=== PATIENT | female | born 1940 | race Caucasian/White ===

== ENCOUNTER 2019-10-23 18:35 | Emergency (ER) | payer MEDICARE, BC, SELFPAY ==
[2019-10-23 18:39] VITALS: BMI 29.7
--- NOTE | 2019-10-23 18:44 | ED_ITS ---
Entered by Rory Menezes, acting as scribe for Neyda Mosley HPI - General Adult General: Chief complaint: General Medical Stated complaint: HTN Time Seen by Provider: 10/23/19 18:42 History of Present Illness: HPI narrative: 79 yo female presents with hypertension and lip numbness. Pt states that she felt strange earlier, then noticed her blood pressure was elevated. Pt denies trouble swallowing and shortness of breath. Pt was recently diagnosed with cellulitis and is taking docycline. Onset (ago): hour(s) Location: face Radiation: non-radiation Severity: moderate Quality: other Exacerbating factors: none Associated symptoms: Deny chest pain, confusion, diaphoresis, dyspnea, headache(s), malaise, nausea, rash, palpitations, syncope or vomiting Review of Systems General: Reports: other (negative unless marked) Const: Denies: fever, chills, body aches, fatigue, malaise or diaphoresis Eyes: Denies: change in vision or blurry vision ENMT: Denies: throat pain, painful swallowing, hoarseness, ear pain, ear discharge, Change in hearing or nasal discharge Card: Denies: chest pain, palpitations, irregular heart rhythm, syncope, pre- syncope, shortness of breath on exertion or shortness of breath when lying down Resp: Denies: shortness of breath, productive cough, non-productive cough, wheezing, coughing up blood or chest congestion GI: Denies: abdominal pain, nausea, vomiting, vomiting blood, coffee grounds in vomit, diarrhea, constipation, cramping, blood in stool or black tarry stool : Denies: flank pain, painful urination, urinary frequency, urinary urgency, decreased urine ouput, urinary incontinence or blood in urine Musc: Denies: neck pain, back pain, extremity pain, extremity swelling, joint pain, joint swelling, joint warmth or joint stiffness Skin/Breast: Denies: rash, skin tenderness or yellow skin Neuro: Denies: headache, numbness in extremities, weakness in extremities, changes in sensation, lack of coordination, difficulty walking, dizziness, vertigo or confusion Endo: Denies: excessive thirst, tired all the time, cold intolerance, excessive sweating, flushing or hot flashes Eduardo/Lymph: Denies: easy bruising, easy bleeding, petechiae or enlarged lymph nodes All/Imm: Denies: hives, throat swelling, tongue swelling, facial swelling or acute wheezing PFSH ED PFSH: Statuses (acute, chronic, etc) shown below reflect problem list status as previously entered and may not be historically accurate Medical History Atrial fibrillation (Acute) CVA (cerebrovascular accident) (Acute) Dementia (Acute) Hypertension (Acute) Surgical History H/O elbow surgery (Acute) H/O thyroidectomy (Acute) Social History Smoking and tobacco status: never smoked Physical Exam Const: COMMON NORMALS: no apparent distress, oriented x3, no limitations, healthy appearing and well nourished EXAM LIMITATIONS: no altered mental status GENERAL APPEARANCE: cooperative, well kempt and well developed ORIENTATION/CONSCIOUSNESS: Yes awake HENMT: COMMON NORMALS: normocephalic, head/scalp atraumatic, hearing grossly normal bilaterally, external ears normal, EAC's normal, external nose normal and moist oral mucous membranes HEAD & SCALP: normal to inspection, normocephalic and atraumatic FACE & SINUS: normal facial exam and face symmetric NOSE: external nose normal and nares normal EXTERNAL EAR: Yes external ears normal EXTERNAL AUDITORY CANAL: EAC's normal MOUTH: oral and palatal mucosa normal and tongue normal Eye: COMMON NORMALS: PERRL, EOMs intact bilaterally, conjunctivae normal and no scleral icterus GENERAL EYE: normal appearance of both eyes and normal light reflex CONJUNCTIVA: Yes conjunctivae normal SCLERA: sclerae normal CORNEA: Yes corneas normal PUPIL: Yes PERRL DIRECT OPHTHALMOSCOPY: Yes normal light reflex Neck/C-Spine: COMMON NORMALS: full ROM, no lymphadenopathy, supple, no meningeal signs and no JVD GENERAL: Yes normal visual inspection and Yes trachea midline CERVICAL SPINE: Yes cervical ROM normal Chest: COMMONS NORMALS: inspection of chest normal and palpation of chest normal Resp: COMMON NORMALS: normal respiratory effort, no retractions, no use of accessory muscles and clear to auscultation bilaterally EFFORT & INSPECTION: Yes able to speak in complete sentences AUSCULTATION: clear to auscultation bilaterally Cardio: COMMON NORMALS: no JVD, regular rate, regular rhythm, S1 normal heart sound, S2 normal heart sound, no gallops, no clicks, no murmurs and no rub JUGULAR VENOUS DISTENTION: no JVD RATE: regular rate RHYTHM: regular rhythm HEART SOUNDS: S1 normal and S2 normal GI: COMMON NORMALS: soft to palpation, non-tender, no hepatosplenomegaly and no masses INSPECTION: Yes normal to inspection PALPATION: Yes soft and Yes no hepatosplenomegaly : COMMON NORMALS: Yes no CVA tenderness BLADDER/KIDNEY EXAM: Yes no CVA tenderness Back/Pelvis: COMMON NORMALS: no CVA tenderness, thoracic and lumbar spine normal to inspection, no thoracic nor lumbar tenderness and thoraco-lumbar ROM normal Extremity: COMMON NORMALS: full ROM, normal capillary refill, no joint enlargement, no clubbing, cyanosis or edema and no calf tenderness; negative for normal to inspection (pt has cellultis on bilateral lower extremities. ) Neuro: COMMON NORMALS: oriented x3, CN's II-XII intact bilaterally, moves all extremities, no focal motor deficits and no sensory deficits noted MENINGEAL SIGNS: Yes no meningeal signs Psych: COMMON NORMALS: mental status grossly normal, thought process normal, cooperative, affect normal, speech normal and activity/motor behavior normal APPEARANCE: Yes well kempt SPEECH: Yes normal speech THOUGHT PROCESS: normal thought process Skin: COMMON NORMALS: negative for no rashes or lesions noted (cellulitis of bilateral lower extremities) GENERAL SKIN EXAM: rashes and/or lesions noted (cellulitis of bilateral lower extremities) Course Vital Signs: Vital signs: Vital Signs Pulse Rate 58 L 10/23/19 19:33 Respiratory Rate 78 H 10/23/19 22:13 Blood Pressure 151/90 10/23/19 22:13 Pulse Oximetry 96 10/23/19 22:13 MDM - General Adult [facility] Narrative: Medical decision making narrative: Jose A Lal is a very nice 79-year-old female who comes in complaining of paresthesias in her lower lip. The paresthesias are on both sides. She denies any weakness or numbness on one side of her face more than another. She denies any arm or leg weakness. The patient states her symptoms have been getting gradually better since the onset a few hours ago. Differential includes CVA, electrolyte normality, allergic reaction/angioedema among many others. We will direct our evaluation to rule out stroke primarily but look for other causes. 2217 -patient symptoms have completely resolved on their own. There is no evidence of DVT of her right lower extremity and she just recently changed to doxycycline from Keflex as her symptoms were not improving. I see no signs of overwhelming sepsis. I believe doxycycline has not had a chance to perform and so she is truly not failed outpatient therapy. I see no abnormality on CT of head or chest. Patient is feeling back to baseline would like to go home. She has an appointment to follow-up with Dr. Peck tomorrow so allow him to evaluate her at that time to determine if he wants to make any changes. Currently the patient has no questions or concerns and wants to proceed with this treatment plan but does agree to return should her symptoms change or worsen. Lab Data: Attestation: I reviewed the patient's lab results. Labs: Lab Results 10/23/19 10/23/19 10/23/19 Range/Units 19:12 19:20 19:28 WBC 5.8 (4.0-10.0) 10^3/ uL RBC 4.12 (4.1-5.3) 10^6/u L Hgb 11.4 L (11.5-15.3) g/dL Hct 36.5 L (37.0-47.0) % MCV 88.6 (81-99) fL MCH 27.7 L (28.0-34.0) pg MCHC 31.2 (30.0-36.0) g/dL RDW 14.3 (12.1-15.1) % Plt Count 253 (130-400) 10^3/c mm MPV 9.1 (7.4-10.4) fL Neut % (Auto) 58.8 % Lymph % (Auto) 29.2 % [place] % (Auto) 8.8 % Eos % (Auto) 1.9 % Baso % (Auto) 1.0 % Neut # (Auto) 3.4 (1.8-7.7) 10^3/u L Lymph # (Auto) 1.7 (0.8-4.8) 10^3/u L [place] # (Auto) 0.5 (0.2-0.9) 10^3/u L Eos # (Auto) 0.1 (0.0-0.8) 10^3/u L Baso # (Auto) 0.1 (0.0-0.1) 10^3/u L Nucleated RBC % (a uto) 0 % Nucleated RBCs # 0.0 /100WBC PT (10.5-13.3) SECO NDS INR (0.8-1.2) APTT (23.9-36.7) SECO NDS D-Dimer (0-0.59) ug/mIFE U Sodium (136-145) mmol/L Potassium (3.5-5.1) mmol/L Chloride (98-107) mmol/L Carbon Dioxide (22-29) mmol/L Anion Gap (5-19) BUN (8-23) mg/dL Creatinine (0.5-0.9) mg/dL Glucose (74-106) mg/dL Calcium (8.8-10.2) mg/Dl Magnesium (1.7-2.3) mg/dL Total Bilirubin (0.15-1.2) mg/dL AST (0-32) U/L ALT (0-33) U/L Alkaline Phosphata se (35-105) IU/L Troponin T Baselin e 12 H (0-10) ng/mL Troponin T 120 Min little [place] (0-10) ng/mL Delta Troponin T (0-10) ABS# Total Protein (6.6-8.7) g/dL Albumin (3.5-5.2) g/dL Globulin (1.3-4.6) g/dL Urine Color Colorless (Yellow) Urine Appearance Clear (CLEAR) Urine pH 7 (5-7) Ur Specific Gravit y 1.005 (1.005-1.030) Urine Protein Neg (Negative) Urine Glucose (UA) Norm (Normal) Urine Ketones Negative (Negative) Urine Occult Blood Neg (Negative) Urine Nitrate Negative (Negative) Urine Bilirubin Neg (NEGATIVE) Urine Urobilinogen Norm (Negative) mg/dL Ur Leukocyte Ashleigh ase Negative (Negative) Urine RBC None (0-2) /hpf Urine WBC Rare (0-5) /hpf Ur Squamous Epith Cells 0-4 H (0-5) Urine Bacteria Trace (NONE) 10/23/19 10/23/19 10/23/19 Range/Units 19:28 19:28 21:03 WBC (4.0-10.0) 10^3/ uL RBC (4.1-5.3) 10^6/u L Hgb (11.5-15.3) g/dL Hct (37.0-47.0) % MCV (81-99) fL MCH (28.0-34.0) pg MCHC (30.0-36.0) g/dL RDW (12.1-15.1) % Plt Count (130-400) 10^3/c mm MPV (7.4-10.4) fL Neut % (Auto) % Lymph % (Auto) % [place] % (Auto) % Eos % (Auto) % Baso % (Auto) % Neut # (Auto) (1.8-7.7) 10^3/u L Lymph # (Auto) (0.8-4.8) 10^3/u L [place] # (Auto) (0.2-0.9) 10^3/u L Eos # (Auto) (0.0-0.8) 10^3/u L Baso # (Auto) (0.0-0.1) 10^3/u L Nucleated RBC % (a uto) % Nucleated RBCs # /100WBC PT 23.60 H (10.5-13.3) SECO NDS INR 2.02 H (0.8-1.2) APTT 39.0 H (23.9-36.7) SECO NDS D-Dimer 0.95 H (0-0.59) ug/mIFE U Sodium 134 L (136-145) mmol/L Potassium 4.0 (3.5-5.1) mmol/L Chloride 96 L (98-107) mmol/L Carbon Dioxide 25 (22-29) mmol/L Anion Gap 17.0 (5-19) BUN 9 (8-23) mg/dL Creatinine 0.8 (0.5-0.9) mg/dL Glucose 106 (74-106) mg/dL Calcium 10.4 H (8.8-10.2) mg/Dl Magnesium 1.9 (1.7-2.3) mg/dL Total Bilirubin 0.4 (0.15-1.2) mg/dL AST 16 (0-32) U/L ALT 10 (0-33) U/L Alkaline Phosphata se 86 (35-105) IU/L Troponin T Baselin e (0-10) ng/mL Troponin T 120 Min [place] 14.04 H (0-10) ng/mL Delta Troponin T 2.04 (0-10) ABS# Total Protein 7.2 (6.6-8.7) g/dL Albumin 3.5 (3.5-5.2) g/dL Globulin 3.7 (1.3-4.6) g/dL Urine Color (Yellow) Urine Appearance (CLEAR) Urine pH (5-7) Ur Specific Gravit y (1.005-1.030) Urine Protein (Negative) Urine Glucose (UA) (Normal) Urine Ketones (Negative) Urine Occult Blood (Negative) Urine Nitrate (Negative) Urine Bilirubin (NEGATIVE) Urine Urobilinogen (Negative) mg/dL Ur Leukocyte Ashleigh ase (Negative) Urine RBC (0-2) /hpf Urine WBC (0-5) /hpf Ur Squamous Epith Cells (0-5) Urine Bacteria (NONE) Imaging Data^: CT Head: Radiologist's impression: [place] [address] CT Scan Report Signed Patient: Hali Ga Unit #: [id number] : 1940 Age/Sex: 79 / F ADM Date: 10/23/19 Loc: ER Room/Bed: Attending Dr: Ordering Provider/Ordering MD: Neyda Mosley DO Date of Service: 10/23/19 Procedure(s): CT head wo con* [id number] Accession Number(s): [id number] Report Number: [id number] PROCEDURE INFORMATION: Exam: CT Head Without Contrast Exam date and time: 10/23/2019 6:54 PM Age: 79 years old Clinical indication: Altered mental status/memory loss; Additional info: Douglass/ams TECHNIQUE: Imaging protocol: Computed tomography of the head without contrast. Total DLP: 803.72 mGy-cm Radiation optimization: All CT scans at this facility use at least one of these dose optimization techniques: automated exposure control; mA and/or kV adjustment per patient size (includes targeted exams where dose is matched to clinical indication); or iterative reconstruction. COMPARISON: CT head wo con* [id number] 09/15/2019 12:29 PM FINDINGS: There is mild generalized atrophy. There are mild areas of decreased attenuation in the periventricular white matter which is nonspecific but likely relates to small vessel ischemic change. There is no evidence for acute infarct. There is no evidence for mass. There is no hemorrhage. There are no extra-axial fluid collections. There is no midline shift. The skull is intact. The visualized paranasal sinuses are well aerated. There is atherosclerotic change of the cavernous carotid arteries. CT/CT head wo con* [id number] IMPRESSION: No evidence for acute infarct, mass or hemorrhage. Radiation Dose CTDIVOL = (mGy): DLP = 803.72 (mGy-cm) Dictated By: Damaso Cantrell MD Signed By: Damaso Cantrell MD Signed Date/Time: 10/23/191916 DD/ 16 CT Chest: Radiologist's impression: [place] [address] CT Scan Report Signed Patient: Hali Ga Unit #: [id number] : 1940 Age/Sex: 79 / F ADM Date: 10/23/19 Loc: ER Room/Bed: Attending Dr: Ordering Provider/Ordering MD: Neyda Mosley DO Date of Service: 10/23/19 Procedure(s): CT angio chest PE protcl 51081 Accession Number(s): [id number] Report Number: [id number] PROCEDURE INFORMATION: Exam: CT Angiography Chest With Contrast Exam date and time: 10/23/2019 8:45 PM Age: 79 years old Clinical indication: Abnormal findings; Abnormal diagnostic tests; Elevated d-dimer; Additional info: Near syncope, positive d-dimer TECHNIQUE: Imaging protocol: Computed tomographic angiography of the chest with intravenous contrast. 3D rendering: MIP and/or 3D reconstructed images were created by the technologist. Total DLP: 572.4 mGy-cm Radiation optimization: All CT scans at this facility use at least one of these dose optimization techniques: automated exposure control; mA and/or kV adjustment per patient size (includes targeted exams where dose is matched to clinical indication); or iterative reconstruction. Contrast material: OMNI 350; Contrast volume: 95 ml; Contrast route: IV; COMPARISON: CR XR chest 1V portable [id number] 10/23/2019 6:50 PM FINDINGS: There are degenerative changes of the spine. The lungs are clear of infiltrate. There is no pleural effusion. There is no pneumothorax. There are no suspicious pulmonary nodules. The central airways are normal in caliber. There is a 5 mm cyst within the left lobe of the thyroid gland. This does not require any further follow-up. Small axillary lymph nodes are present. Small mediastinal lymph nodes are present. Small hilar lymph nodes are present. Interrogation of the pulmonary arteries in multiple planes shows no evidence for pulmonary embolism. The aorta is normal in caliber with no evidence for aneurysm or dissection. The heart is normal in size. There is no evidence for right heart failure. There is a small hiatal hernia. The upper abdominal structures are unremarkable. There is a sebaceous cyst noted anterior to the sternum. CT/CT angio chest PE protcl [id number] IMPRESSION: 1. No evidence for pulmonary embolism. 2. No focal infiltrates. 3. Incidental findings as described. Radiation Dose CTDIVOL = (mGy): DLP = 572.4 (mGy-cm) Dictated By: Damaso Cantrell MD Signed By: Damaso Cantrell MD Signed Date/Time: 10/23/192203 DD/ 02 EKG Data^: EKG 1: Attestation: I personally reviewed and interpreted this EKG as follows: EKG interpretation date: 10/23/19 EKG interpretation time: 19:22 Interpretation: Normal sinus rhythm at 56 beats a minute, possible Q waves anteriorly, LVH, interventricular conduction delay, nonspecific ST-T wave changes. Computer generated interpretation: Head CT 10/23/19 18:46 IMPRESSION: No evidence for acute infarct, mass or hemorrhage. Radiation Dose CTDIVOL = (mGy): DLP = 803.72 (mGy-cm) Chest CTA 10/23/19 20:41 IMPRESSION: 1. No evidence for pulmonary embolism. 2. No focal infiltrates. 3. Incidental findings as described. Radiation Dose CTDIVOL = (mGy): DLP = 572.4 (mGy-cm) EKG 2: Attestation: I personally reviewed and interpreted this EKG as follows: EKG interpretation date: 10/23/19 EKG interpretation time: 20:33 Interpretation: Normal sinus rhythm at 59 beats a minute, LVH, normal MA interval, interventricular conduction delay, no acute ST-T wave changes. Unchanged from previous Computer generated interpretation: Head CT 10/23/19 18:46 IMPRESSION: No evidence for acute infarct, mass or hemorrhage. Radiation Dose CTDIVOL = (mGy): DLP = 803.72 (mGy-cm) Chest CTA 10/23/19 20:41 IMPRESSION: 1. No evidence for pulmonary embolism. 2. No focal infiltrates. 3. Incidental findings as described. Radiation Dose CTDIVOL = (mGy): DLP = 572.4 (mGy-cm) Discharge Plan Discharge Patient Disposition: Home, Self-Care Clinical Impression: Facial paresthesia, Cellulitis and abscess of right leg Condition: Stable Discharge Orders: Discharge Order (Routine); Ordered 10/23/19 Ordered By: Neyda Mosley Referrals: Neo Mcelroy [Family Provider] - 1-3 days Discharge Diet: Advance as tolerated Discharge Activity: Increase activity as tolerated Patient Instructions: Cellulitis (ED) Activity Restrictions/Additional Instructions: My discharge be certain to follow-up with Mr. Peck tomorrow for recheck. Continue your doxycycline as prescribed. Return to the ER sooner for increased pain, fever, vomiting, worsening of your cellulitis, or for any other cause for concern. Coding Level of Care Code ED Bundle Sorter for Chg Fwd Exam Problem Focused The documentation recorded by the Clif roach Kialy, accurately reflects the service I personally performed and the decisions made by Melany uriarte Eli N Oct 23, 2019 18:35
--- NOTE | 2019-10-23 18:46 | USCV_ITS ---
Hali Ga Age: 79 Gender: F : 1940 Exam Date: 10/23/2019 19:29 Ordering Phys: Neyda Mosley DO Technologist: Emily Schaffer Exam Location: [facility] [place]_ Indication: SWELLING HISTORY: Lower extremity swelling. PROCEDURES: Venous duplex imaging was performed in only the right lower extremity. The following venous structures were evaluated: common femoral vein, profunda vein, proximal portion of the greater saphenous vein, superficial femoral vein, and the popliteal vein. In addition, the posterior tibial and peroneal trunk were evaluated. Serial compression, augmentation maneuvers, and spectral Doppler flow evaluation were performed. FINDINGS: Normal 2-D Doppler and augmentation and compressibility throughout the lower extremity venous structures. Additional imaging through the proximal calf veins also reveals no thrombus. Limited evaluation of the greater saphenous vein is patent with no thrombus. CONCLUSIONS No DVT right lower extremity. Dr. Alisa Villalobos DO (Electronically Signed) Final Date: 24 October 2019 09:43 S
--- NOTE | 2019-10-23 18:46 | XR_ITS ---
WS: [id number] CHEST XRAY TECHNIQUE: Portable chest. CLINICAL INFORMATION: cough COMPARISON: September 15, 2019 FINDINGS: Heart: Normal cardiac silhouette. Lungs: Lungs are clear. No consolidation or pleural effusion. Bones: Normal visualized bony structures. XR/XR chest 1V portable [id number] IMPRESSION: Normal chest
--- NOTE | 2019-10-23 18:47 | ECG_ITS ---
Measurements Intervals [place] Rate: 56 P: 32 HI: 184 QRS: -8 QRSD: 126 T: 58 QT: 430 QTc: 416 SINUS BRADYCARDIA POSSIBLE RIGHT VENTRICULAR CONDUCTION DELAY [RSR (QR) IN V1/V2] POSSIBLE LEFT VENTRICULAR HYPERTROPHY [VOLTAGE CRITERIA PLUS LAE OR QRS WIDENING] POSSIBLE SEPTAL MYOCARDIAL INFARCTION , PROBABLY OLD [30 ms Q WAVE IN V1/V2] Compared to ECG 09/15/2019 11:36:34 Left-axis deviation no longer present Myocardial infarct finding still present Electronically Signed On 10-24-2019 20:21:59 BUSINESS SERVICES SALES AGENT by Jenna Wu M.D. [id number]
[2019-10-23 19:33] VITALS: BP 162/71; PULSE 58; RESP 19; O2SAT 97
[2019-10-23 19:36] LABS: Basophils # 0.1 10^3/uL (0.0-0.1); Eosinophils # 0.1 10^3/uL (0.0-0.8); Eosinophils % 1.9 %; Hematocrit 36.5 % (37.0-47.0); Hemoglobin 11.4 g/dL (11.5-15.3); Lymphocytes # 1.7 10^3/uL (0.8-4.8); Lymphocytes % 29.2 %; Mean Corpuscular HGB Conc 31.2 g/dL (30.0-36.0); Mean Corpuscular Hemoglobin 27.7 pg (28.0-34.0); Mean Corpuscular Volume 88.6 fL (81-99); Mean Platelet Volume 9.1 fL (7.4-10.4); Monocytes # 0.5 10^3/uL (0.2-0.9); Monocytes % 8.8 %; Neutrophils # 3.4 10^3/uL (1.8-7.7); Neutrophils % 58.8 %; Nucleated Red Blood Cells % 0 %; Platelet Count 253 10^3/cmm (130-400); Red Blood Count 4.12 10^6/uL (4.1-5.3); Red Cell Distribution Width 14.3 % (12.1-15.1); White Blood Count 5.8 10^3/uL (4.0-10.0)
[2019-10-23 19:47] LABS: INR 2.02 (0.8-1.2)
[2019-10-23 19:50] LABS: D Dimer 0.95 ug/mIFEU (0-0.59)
[2019-10-23 19:55] LABS: Alanine Aminotransferase 10 U/L (0-33); Albumin Level 3.5 g/dL (3.5-5.2); Alkaline Phosphatase 86 IU/L (35-105); Aspartate Amino Transferase 16 U/L (0-32); Blood Urea Nitrogen 9 mg/dL (8-23); Calcium 10.4 mg/Dl (8.8-10.2); Carbon Dioxide 25 mmol/L (22-29); Chloride 96 mmol/L (98-107); Globulin 3.7 g/dL (1.3-4.6); Glucose 106 mg/dL (74-106); Magnesium 1.9 mg/dL (1.7-2.3); Sodium 134 mmol/L (136-145); Total Bilirubin 0.4 mg/dL (0.15-1.2); Total Protein 7.2 g/dL (6.6-8.7)
[2019-10-23 19:56] LABS: Troponin(5th) Baseline 12 ng/mL (0-10)
[2019-10-23 19:59] LABS: Urine Appearance Clear (CLEAR); Urine Color Colorless (Yellow); pH Urine 7 (5-7)
[2019-10-23 20:00] LABS: Add Urine Culture? No; Bacteria Urine TRACE; Bilirubin Urine Neg (NEGATIVE); Blood Urine Neg (Negative); Glucose Urine UA Norm (Normal); Ketones Urine Negative (Negative); Leukocyte Esterase Urine Negative (Negative); Nitrate Urine Negative (Negative); Protein Urine Neg (Negative); Specific Gravity, Urine 1.005 (1.005-1.030); Squamous Epithelial Cell Urine 0-4 (0-5); Urobilinogen Urine Norm (Negative); WBC Urine RARE /hpf (0-5)
--- NOTE | 2019-10-23 20:41 | CTR_ITS ---
PROCEDURE INFORMATION: Exam: CT Angiography Chest With Contrast Exam date and time: 10/23/2019 8:45 PM Age: 79 years old Clinical indication: Abnormal findings; Abnormal diagnostic tests; Elevated d-dimer; Additional info: Near syncope, positive d-dimer TECHNIQUE: Imaging protocol: Computed tomographic angiography of the chest with intravenous contrast. 3D rendering: MIP and/or 3D reconstructed images were created by the technologist. Total DLP: 572.4 mGy-cm Radiation optimization: All CT scans at this facility use at least one of these dose optimization techniques: automated exposure control; mA and/or kV adjustment per patient size (includes targeted exams where dose is matched to clinical indication); or iterative reconstruction. Contrast material: OMNI 350; Contrast volume: 95 ml; Contrast route: IV; COMPARISON: CR XR chest 1V portable [id number] 10/23/2019 6:50 PM FINDINGS: There are degenerative changes of the spine. The lungs are clear of infiltrate. There is no pleural effusion. There is no pneumothorax. There are no suspicious pulmonary nodules. The central airways are normal in caliber. There is a 5 mm cyst within the left lobe of the thyroid gland. This does not require any further follow-up. Small axillary lymph nodes are present. Small mediastinal lymph nodes are present. Small hilar lymph nodes are present. Interrogation of the pulmonary arteries in multiple planes shows no evidence for pulmonary embolism. The aorta is normal in caliber with no evidence for aneurysm or dissection. The heart is normal in size. There is no evidence for right heart failure. There is a small hiatal hernia. The upper abdominal structures are unremarkable. There is a sebaceous cyst noted anterior to the sternum. CT/CT angio chest PE protcl [id number] IMPRESSION: 1. No evidence for pulmonary embolism. 2. No focal infiltrates. 3. Incidental findings as described. Radiation Dose CTDIVOL = (mGy): DLP = 572.4 (mGy-cm)
--- NOTE | 2019-10-23 20:47 | ECG_ITS ---
Measurements Intervals [place] Rate: 59 P: 31 DC: 190 QRS: -5 QRSD: 127 T: 59 QT: 434 QTc: 432 SINUS BRADYCARDIA POSSIBLE LEFT VENTRICULAR HYPERTROPHY [VOLTAGE CRITERIA PLUS LAE OR QRS WIDENING] POSSIBLE SEPTAL MYOCARDIAL INFARCTION , PROBABLY OLD [30 ms Q WAVE IN V1/V2] Compared to ECG 09/15/2019 11:36:34 Left-axis deviation no longer present Myocardial infarct finding still present Electronically Signed On 10-24-2019 20:32:13 [employer]ANK STAVE ASSEMBLER by Jenna Wu M.D. [email or web address]
[2019-10-23 21:21] LABS: Troponin 5 2HR 14.04 ng/mL (0-10); Troponin 5 2HR Delta 2.04 ABS# (0-10)
[2019-10-23] MEDS: iohexol 350 mg/mL 100 mL Btl 95 ML IV (21:41)
[2019-10-23 22:13] VITALS: BP 151/90; RESP 78; O2SAT 96
[2019-10-23 22:34] VITALS: BP 151/74; PULSE 67; RESP 17; O2SAT 96
== END 2019-10-23 22:34 | disposition home or self-care (01) ==
PROVIDERS: Emergency Provider Emergency Medicine; Family Provider Physician Assistant Medical
DX: R20.2 Paresthesia of skin (principal); L03.115 Cellulitis of right lower limb; I48.91 Unspecified atrial fibrillation; Z86.73 Personal history of transient ischemic attack (TIA), and cerebral infarction without residual deficits; F03.90 Unspecified dementia, unspecified severity, without behavioral disturbance, psychotic disturbance, mood disturbance, and anxiety; I10 Essential (primary) hypertension
CPT/HCPCS: 36415; 70450; 71045; 71275; 80053; 81001; 83735; 84484; 85025; 85378; 85610; 85730; 93005; 93971; 99282; 99284; Q9967

== ENCOUNTER → 2019-11-28 16:08 | Outpatient (BNVA) | payer MEDICARE, BC, SELFPAY | PROVIDERS: Family Provider Physician Assistant Medical; Visit Provider Registered Nurse | DX: E11.9 Type 2 diabetes mellitus without complications (principal) | CPT/HCPCS: 36416; 82962 ==

== ENCOUNTER 2019-12-07 15:48 | Outpatient (CLI) | payer MEDICARE, BC, SELFPAY ==
--- NOTE | 2019-12-07 16:02 | MR_ITS ---
WS: [id number] MRI BRAIN WITHOUT CONTRAST HISTORY: Alzheimer's, left-sided weakness. COMPARISON: CT head 10/23/2019. TECHNIQUE: Diffusion imaging, multiplanar T1, T2 and FLAIR imaging obtained. No evidence for an acute infarct on the diffusion-weighted images. There are multiple abnormalities n oted on the susceptibility sequence from prior hemorrhages and microhemorrhages. There are numerous s ubcortical and bilateral hemosiderin depositions. The largest is in the posterior LEFT frontal lobe m easuring maximum diameter of 9 mm. Majority of these are subcortical distribution but a few are sligh tly deeper. There is a prior hemorrhage in the LEFT splenium. Mild bilateral cerebral atrophy. There are a few scattered areas of increased T2 and FLAIR signal hyp erintensities from chronic microvascular ischemic disease. Ventricles and extra-axial spaces are mildly prominent. No inferior displacement of cerebellar tonsils. The sella turcica and pituitary gland are unremarkabl e. CSF like collection in the retrocerebellar region is stable and probably represents an arachnoid cyst . Dural venous sinuses and algaaciq of Braun demonstrate no abnormality on this unenhanced studies. Paranasal sinuses: Clear. Mastoid air cells: Normal. Calvarium and scalp: Intact. MR/MR head wo con* [id number] IMPRESSION: 1. No acute infarct or mass effect. 2. Multiple small foci of hemosiderin deposition predominantly involving the s ubcortical white matter noted bilaterally. Differential includes amyloid angiop athy, prior hypertensive microhemorrhages and multiple small cavernous malforma tions.
== END 2019-12-07 15:49 | disposition home or self-care (01) ==
LOC: RADWPI 15:53
PROVIDERS: Family Provider Physician Assistant Medical; PCP Physician Assistant Medical; Visit Provider Registered Nurse
DX: G30.1 Alzheimer's disease with late onset (principal); F02.80 Dementia in other diseases classified elsewhere, unspecified severity, without behavioral disturbance, psychotic disturbance, mood disturbance, and anxiety; R53.1 Weakness
CPT/HCPCS: 70551

== ENCOUNTER → 2020-08-31 17:52 | Outpatient (BNVA) | payer MEDICARE, BC, SELFPAY | PROVIDERS: Family Provider Physician Assistant Medical; PCP Physician Assistant Medical; Visit Provider Nurse Practitioner Family | DX: N39.0 Urinary tract infection, site not specified (principal); R39.11 Hesitancy of micturition | CPT/HCPCS: 81000 ==

== ENCOUNTER → 2020-09-02 11:11 | Outpatient (BNVA) | payer MEDICARE, BC, SELFPAY | PROVIDERS: Family Provider Physician Assistant Medical; PCP Physician Assistant Medical; Visit Provider Registered Nurse | DX: R39.11 Hesitancy of micturition (principal); R35.0 Frequency of micturition; G30.1 Alzheimer's disease with late onset; F02.81 Dementia in other diseases classified elsewhere, unspecified severity, with behavioral disturbance | CPT/HCPCS: 81000; 87086 ==

== ENCOUNTER → 2020-10-24 08:57 | Outpatient (BNVA) | payer MEDICARE, BC, SELFPAY | PROVIDERS: Family Provider Physician Assistant Medical; PCP Physician Assistant Medical; Visit Provider Registered Nurse | DX: R68.89 Other general symptoms and signs (principal); K52.9 Noninfective gastroenteritis and colitis, unspecified | CPT/HCPCS: 87400 ==

== ENCOUNTER 2020-12-10 08:43 | Outpatient (CLI) | payer MEDICARE, BC, SELFPAY ==
--- NOTE | 2020-12-10 08:45 | US_ITS ---
WS: [id number] INDICATION: Enlarged lymph nodes TECHNIQUE: Ultrasound soft tissue neck FINDINGS: Ultrasound soft tissue neck area of concern. Ultrasound in the area of the submandibular gl ands. Bilateral hypoechoic enlarged submandibular lymph nodes measuring up to 1.5 cm greater on the r ight. These have an abnormal appearance with replacement of the normal fatty hilum. Normal submandibu lar glands. US/US soft tissue head neck [id number] IMPRESSION: Enlarged hypoechoic right greater than left submandibular lymph nod es with replacement of the normal fatty hilum. Recommend further evaluation wit h contrast-enhanced neck CT. Largest right submandibular lymph node measures 1. 4 x 1.1 cm.
== END 2020-12-10 08:44 | disposition home or self-care (01) ==
LOC: RAD 08:49
PROVIDERS: PCP Physician Assistant Medical; Visit Provider Registered Nurse
DX: R59.0 Localized enlarged lymph nodes (principal)
CPT/HCPCS: 76536

== ENCOUNTER 2020-12-17 15:13 | Outpatient (CLI) | payer MEDICARE, BC, SELFPAY ==
--- NOTE | 2020-12-17 15:30 | CT_ITS ---
WS: [id number] CT scan of the neck. Additional two-dimensional coronal and sagittal reconstruction was performed. Clinical Data: R59.0 - Localized enlarged lymph nodes Comparison: Neck ultrasound, 12/17/2020 DLP: 2582.[address] scans at [facility] use at least one of these dose optimization techniques: automat ed exposure control; mA and/or kV adjustment per patient size (includes targeted exams where dose is matched to clinical indication); or iterative reconstruction. Findings: The left neck lymph node adjacent to the submandibular gland is identified and measures 1.5cm. No oth er significant adenopathy is seen. The remainder of the lymph nodes in the neck appear to be normal. The salivary glands are unremarkable. There is no prevertebral soft tissue swelling. The larynx is sy mmetric. The thyroid gland shows normal enhancement with probable small cysts in the left lobe.. The floor of the mouth and parapharyngeal spaces are normal. The oral cavity is unremarkable. The carotid arteries bifurcate normally. The cervical spine shows mild osteoarthritis. The lung apice s show no abnormalities. The portions of the intracranial circulation which are seen demonstrate no a bnormalities. The ventricular system shows modest dilatation without shift. No erosion of the skull o r skull base is seen. CT/CT neck w con* [id number] Impression: 1. Isolated lymph node enlargement adjacent to left submandibular gland. 2. No diffuse lymphadenopathy is seen.
[2020-12-17 15:55] LABS: Blood Urea Nitrogen 11 mg/dL (8-23)
[2020-12-17] MEDS: iohexol 300 mg/mL 100 mL Btl IV (16:11)
== END 2020-12-17 15:14 | disposition home or self-care (01) ==
LOC: RADWPI 15:14
PROVIDERS: PCP Registered Nurse; Visit Provider Registered Nurse
DX: R59.0 Localized enlarged lymph nodes (principal)
CPT/HCPCS: 70491; 82565; 84520; Q9967

== ENCOUNTER 2021-01-31 22:26 | Emergency (ER) | payer MEDICARE, BC, SELFPAY ==
[2021-01-31 22:33] VITALS: BP 153/77; PULSE 69; RESP 18; TEMP 37.1; O2SAT 96; BMI 30.5
--- NOTE | 2021-01-31 23:38 | CTR_ITS ---
PROCEDURE INFORMATION: Exam: CT Lumbar Spine Without Contrast Exam date and time: 01/31/2021 11:44 PM Age: 80 years old Clinical indication: Injury or trauma; Fall; Blunt trauma (contusions or hematomas); Injury date: ; Injury details: PT fell in the shower today, denies loc, pain in buttox TECHNIQUE: Imaging protocol: Computed tomography images of the lumbar spine without contrast. Radiation optimization: All CT scans at this facility use at least one of these dose optimization techniques: automated exposure control; mA and/or kV adjustment per patient size (includes targeted exams where dose is matched to clinical indication); or iterative reconstruction. COMPARISON: No relevant prior studies available. RADIATION DOSE METRICS: Total DLP (mGy-cm): 2406.92 FINDINGS: Vertebrae: No acute fracture. Normal alignment. Discs/Spinal canal/Neural foramina: Sclerosis, joint space narrowing and bone spurring is seen within the facets of the lumbar spine most notably from L3-S1 compatible with degenerative joint disease. Mild diffuse loss of disc height is seen within the lumbar spine compatible with degenerative disc disease.. Soft tissues: Unremarkable. CT/CT lumbar spine wo con* [id number] IMPRESSION: There are acute osseous findings. Radiation Dose CTDIVOL = (mGy): DLP = 2406.92 (mGy-cm)
--- NOTE | 2021-01-31 23:38 | CTR_ITS ---
PROCEDURE INFORMATION: Exam: CT Head Without Contrast Exam date and time: 01/31/2021 11:44 PM Age: 80 years old Clinical indication: Injury or trauma; Fall; Blunt trauma (contusions or hematomas); Without loss of consciousness; Injury date: 01/31/2021; Injury details: PT fell in the shower today, denies loc, pain in buttox TECHNIQUE: Imaging protocol: Computed tomography of the head without contrast. Radiation optimization: All CT scans at this facility use at least one of these dose optimization techniques: automated exposure control; mA and/or kV adjustment per patient size (includes targeted exams where dose is matched to clinical indication); or iterative reconstruction. COMPARISON: CT head wo con* [id number] 10/23/2019 7:15 PM RADIATION DOSE METRICS: Total DLP (mGy-cm): 872.76 FINDINGS: Brain: There is mild diffuse cerebral atrophy. Patchy areas of hypoattenuation seen in the deep white matter of the cerebral hemispheres bilaterally compatible mild deep white matter microvascular disease. There is some focal hypoattenuation and mild atrophy seen within the left frontal lobe superiorly compatible with a chronic infarction. This appears stable compared with 10/23/2019. Cerebral ventricles: No ventriculomegaly. Bones/joints: Unremarkable. No acute fracture. Paranasal sinuses: Visualized sinuses are unremarkable. No fluid levels. Mastoid air cells: Visualized mastoid air cells are well aerated. Soft tissues: Unremarkable. CT/CT head wo con* [id number] IMPRESSION: There are no acute intracranial findings. Stable head CT compared with 10/23/2019. Radiation Dose CTDIVOL = (mGy): DLP = 872.76 (mGy-cm)
--- NOTE | 2021-01-31 23:38 | CTR_ITS ---
PROCEDURE INFORMATION: Exam: CT Pelvis Without Contrast; Skeletal Exam date and time: 01/31/2021 11:44 PM Age: 80 years old Clinical indication: Injury or trauma; Fall; Blunt trauma (contusions or hematomas); Does not apply; Pelvic region; Injury date: 01/31/2021; Injury details: PT fell in the shower today, denies loc, pain in buttox TECHNIQUE: Imaging protocol: Computed tomography images of the pelvis without contrast. Exam focused on the skeletal structures. Radiation optimization: All CT scans at this facility use at least one of these dose optimization techniques: automated exposure control; mA and/or kV adjustment per patient size (includes targeted exams where dose is matched to clinical indication); or iterative reconstruction. COMPARISON: CR Hip 2-3v RIGHT wwo Pelv* [id number] 01/28/2019 1:59 AM RADIATION DOSE METRICS: Total DLP (mGy-cm): 805.52 FINDINGS: Bones/joints: Unremarkable. No acute fracture. No dislocation. Soft tissues: Unremarkable. CT/CT pelvis wo con [id number] IMPRESSION: No acute findings. Radiation Dose CTDIVOL = (mGy): DLP = 805.52 (mGy-cm)
--- NOTE | 2021-01-31 23:39 | ECG_ITS ---
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: : 1940 Requested By: Ramirez Garay Order Number: [id number] Cher MD: ONDINA BRINK Measurements Intervals [place] Rate: 67 P: 29 [place]: 161 QRS: -27 QRSD: 129 T: 60 QT: 389 QTc: 413 Interpretive Statements SINUS RHYTHM POSSIBLE LEFT VENTRICULAR HYPERTROPHY [VOLTAGE CRITERIA PLUS LAE OR QRS WIDENING] POSSIBLE SEPTAL MYOCARDIAL INFARCTION , OF INDETERMINATE AGE [30 ms Q WAVE IN V1/V2] Compared to ECG 10/23/2019 20:32:21 Sinus bradycardia no longer present Myocardial infarct finding still present Electronically Signed On 02-01-2021 22:24:27 CDT by ONDINA BRINK [email or web address]/store/NU/[id number] f
[2021-01-31 23:59] LABS: Add Urine Microscopic? NO; Charge for UA Resulting for Rev
--- NOTE | 2021-02-01 00:20 | ED_ITS ---
HPI - Fall General: Chief Complaint: Fall Stated Complaint: FALL/LOWER BACK PAIN Time Seen by Provider: 01/31/21 22:55 History of Present Illness: HPI Narrative: 80-year-old female with a history of CVA. She fell around 830 this evening in the bathroom after getting out of the shower she essentially landed on her buttocks. A family member found her on her back. She complains of pain to the tailbone and lower back mainly. No headache. Family was concerned because it seemed like she was possibly dragging her right lower extremity a bit more since the fall that is her affected lower extremity from the previous stroke. She is anticoagulated. complaint: fall Onset (ago): hour(s) Fall from: standing Fall witnessed: no Place fall occurred: home Loss of consciousness: None Prolonged down time: no Symptoms prior to fall: none Context: tripped/slipped (Likely, although they are unsure) Location of injury: back and buttocks Severity: moderate Quality: aching Associated symptoms-after fall: Reports difficulty walking; Denies abdominal pain, chest pain, confusion, neck pain or short of breath Review of Systems Const: Denies: fever(s) or chills Card: Denies: chest pain Resp: Denies: dyspnea or productive cough GI: Denies: abdominal pain : Denies: flank pain or difficulty voiding Musc: Denies: neck pain Neuro: Reports: difficulty walking; Denies: confusion PFSH ED PFSH: Medical History Atrial fibrillation CVA (cerebrovascular accident) Dementia Hypertension Surgical History H/O elbow surgery H/O thyroidectomy Social History Smoking and tobacco status: never smoked Physical Exam Const: COMMON NORMALS: patient oriented x3 GENERAL APPEARANCE: well developed ORIENTATION/CONSCIOUSNESS: Yes oriented to person, Yes oriented to place and Yes oriented to time HENMT: COMMON NORMALS: normocephalic and external ears normal HEAD & SCALP: normocephalic FACE & SINUS: normal facial exam EXTERNAL EAR: Yes external ears normal Eye: COMMON NORMALS: Equal, round and reactive pupils present, EOMs intact bilaterally and conjunctivae normal EYELID: eyelids normal CONJUNCTIVA: Yes conjunctivae normal PUPIL: Yes Equal, round and reactive pupils present Neck/C-Spine: COMMON NORMALS: full ROM GENERAL: No tracheal deviation CERVICAL SPINE: No Cervical spine tenderness Chest: COMMONS NORMALS: normal inspection of the chest CHEST: No tenderness Resp: COMMON NORMALS: clear to auscultation bilaterally EFFORT & INSPECTION: No tachypneic, No respiratory distress, No retractions, No uses accessory muscles and No tracheal deviation AUSCULTATION: clear to auscultation bilaterally, no rhonchi, no wheezes and lung sounds not diminished Cardio: COMMON NORMALS: regular rate and regular rhythm RATE: regular rate RHYTHM: regular rhythm HEART SOUNDS: no murmurs PERIPHERAL PULSES: radial pulses present GI: COMMON NORMALS: Soft to palpation INSPECTION: No abdominal distension AUSCULTATION: No Hyperactive bowel sounds present and No Hypoactive bowel sounds present PALPATION: Yes Soft to palpation, No Guarding due to palpation present (GI) and No Rigid due to palpation Back/Pelvis: OTHER: Exam the lumbar spine and pelvis reveals no pain with pelvic compression. There is mild tenderness at L5. There is some tenderness over the sacrum. No deformity. Straight leg raise test is negative bilaterally Neuro: COMMON NORMALS: patient oriented x3, CN's II-XII intact bilaterally and no focal motor deficits SENSORIUM/ORIENTATION: Yes oriented to person, Yes oriented to place and Yes oriented to time COORDINATION/BALANCE: szqjep-[id number] test normal SPEECH: speech normal SENSORY EXAM: Yes extr emities (Intact) MOTOR EXAM: Pronator motor function not present COORDINATION: [id number]-dz-[id number] test normal Psych: COMMON NORMALS: mental status grossly normal Skin: COMMON NORMALS: no rashes or lesions noted GENERAL SKIN EXAM: no rashes or lesions noted Course Vital Signs: Vital signs: Vital Signs Temperature 98.7 F 01/31/21 22:33 Pulse Rate 62 02/01/21 01:24 Respiratory Rate 19 H 02/01/21 01:24 Blood Pressure 147/76 02/01/21 01:24 Pulse Oximetry 97 02/01/21 01:24 MDM - Fall MDM Narrative: Medical decision making narrative: NIH stroke scale is [address] of the bony pelvis is negative as well as the lumbar spine CT. labs are benign. Clinically she has no signs of stroke. She will be allowed home. Pain control for sacral contusion Lab Data: Labs: Lab Results 01/31/21 02/01/21 02/01/21 Range/Units 23:45 00:38 00:38 WBC 11.4 H (4.0-10.0) 10^3/ uL RBC 4.39 (4.1-5.3) 10^6/u L Hgb 12.8 (11.5-15.3) g/dL Hct 39.0 (37.0-47.0) % MCV 88.8 (81-99) fL MCH 29.2 (28.0-34.0) pg MCHC 32.8 (30.0-36.0) g/dL RDW 13.3 (12.1-15.1) % Plt Count 221 (130-400) 10^3/c mm MPV 9.4 (7.4-10.4) fL Neut % (Auto) 78.3 % Lymph % (Auto) 13.1 % Catron % (Auto) 6.8 % Eos % (Auto) 0.9 % Baso % (Auto) 0.4 % Neut # (Auto) 8.93 H (1.8-7.7) 10^3/u L Lymph # (Auto) 1.5 (0.8-4.8) 10^3/u L Catron # (Auto) 0.8 (0.2-0.9) 10^3/u L Eos # (Auto) 0.1 (0.0-0.8) 10^3/u L Baso # (Auto) 0.1 (0.0-0.1) 10^3/u L Nucleated RBC % (a uto) 0 % Nucleated RBCs # 0.0 /100WBC PT 21.10 H (12.1-14.9) SECO NDS INR 1.78 H (0.8-1.2) Sodium (136-145) mmol/L Potassium (3.5-5.1) mmol/L Chloride (98-107) mmol/L Carbon Dioxide (22-29) mmol/L Anion Gap (5-19) BUN (8-23) mg/dL Creatinine (0.5-0.9) mg/dL GFR Calculation Glucose (65-115) mg/dL Calculated Osmolal ity (285-295) mOsm/k g Calcium (8.5-10.5) mg/dL Total Bilirubin (0.15-1.2) mg/dL AST (0-32) U/L ALT (0-33) U/L Alkaline Phosphata se (35-105) IU/L Creatine Kinase (26-192) U/L Troponin T Baselin e (0-10) ng/L Total Protein (6.6-8.7) g/dL Albumin (3.5-5.2) g/dL Globulin (1.3-4.6) g/dL Urine Color Yellow (Yellow) Urine Appearance Clear (CLEAR) Urine pH 5 (5-7) Ur Specific Gravit y 1.005 (1.005-1.030) Urine Protein Neg (Negative) Urine Glucose (UA) Norm (Normal) Urine Ketones Negative (Negative) Urine Blood Neg (Negative) Urine Nitrate Negative (Negative) Urine Bilirubin Neg (Negative) Urine Urobilinogen Norm (Negative) mg/dL Ur Leukocyte Ashleigh ase Negative (Negative) 02/01/21 02/01/21 Range/Units 00:38 00:38 WBC (4.0-10.0) 10^3/ uL RBC (4.1-5.3) 10^6/u L Hgb (11.5-15.3) g/dL Hct (37.0-47.0) % MCV (81-99) fL MCH (28.0-34.0) pg MCHC (30.0-36.0) g/dL RDW (12.1-15.1) % Plt Count (130-400) 10^3/c mm MPV (7.4-10.4) fL Neut % (Auto) % Lymph % (Auto) % Catron % (Auto) % Eos % (Auto) % Baso % (Auto) % Neut # (Auto) (1.8-7.7) 10^3/u L Lymph # (Auto) (0.8-4.8) 10^3/u L Catron # (Auto) (0.2-0.9) 10^3/u L Eos # (Auto) (0.0-0.8) 10^3/u L Baso # (Auto) (0.0-0.1) 10^3/u L Nucleated RBC % (a uto) % Nucleated RBCs # /100WBC PT (12.1-14.9) SECO NDS INR (0.8-1.2) Sodium 131 L (136-145) mmol/L Potassium 4.2 (3.5-5.1) mmol/L Chloride 96 L (98-107) mmol/L Carbon Dioxide 25 (22-29) mmol/L Anion Gap 14.2 (5-19) BUN 14 (8-23) mg/dL Creatinine 0.7 (0.5-0.9) mg/dL GFR Calculation Not Reportable Glucose 105 (65-115) mg/dL Calculated Osmolal ity 273 L (285-295) mOsm/k g Calcium 9.2 (8.5-10.5) mg/dL Total Bilirubin 0.3 (0.15-1.2) mg/dL AST 20 (0-32) U/L ALT 21 (0-33) U/L Alkaline Phosphata se 105 (35-105) IU/L Creatine Kinase 104 (26-192) U/L Troponin T Baselin e 17 H (0-10) ng/L Total Protein 6.5 L (6.6-8.7) g/dL Albumin 4.5 (3.5-5.2) g/dL Globulin 2.0 (1.3-4.6) g/dL Urine Color (Yellow) Urine Appearance (CLEAR) Urine pH (5-7) Ur Specific Gravit y (1.005-1.030) Urine Protein (Negative) Urine Glucose (UA) (Normal) Urine Ketones (Negative) Urine Blood (Negative) Urine Nitrate (Negative) Urine Bilirubin (Negative) Urine Urobilinogen (Negative) mg/dL Ur Leukocyte Ashleigh ase (Negative) Discharge Plan Discharge Patient Disposition: Home Clinical Impression: Contusion of buttock Qualifiers: Encounter type: initial encounter Qualified Code(s): S30.0XXA - Contusion of lower back and pelvis, initial encounter Condition: Stable Prescriptions: New hydrocodone-acetaminophen 5-325 mg tablet 1 tab PO Q8H PRN (Reason: pain) Qty: 10 RF: 0 No Action Lactobacillus acidophilus [Acidophilus] Capsule 100 mg PO DAILY RF: 0 ascorbic acid (vitamin C) 500 mg capsule PO RF: 0 coenzyme Q10 100 mg capsule 100 mg PO DAILY RF: 0 donepezil 23 mg tablet 23 mg PO DAILY RF: 0 omega-3 fatty acids [Fish Oil Concentrate] 1,000 mg capsule 1,000 mg PO DAILY RF: 0 fluticasone propionate [Allergy Relief (fluticasone)] 50 mcg/actuation spray,suspension 1 spray INTRANASAL DAILY RF: 0 losartan 50 mg tablet 50 mg PO DAILY RF: 0 lysine 500 mg tablet 500 mg PO DAILY RF: 0 pravastatin 40 mg tablet 40 mg PO DAILY RF: 0 warfarin 7.5 mg tablet 7.5 mg PO .every other day RF: 0 ondansetron HCl 4 mg tablet 4 mg PO Q8H Qty: 10 RF: 0 diltiazem HCl 120 mg capsule,extended release 24hr See Rx Instructions .ROUTE .COMPLEX Qty: 90 RF: 0 Discharge Orders: Discharge ED (Routine); Ordered 02/01/21 Ordered By: Ramirez Glass Referrals: Rizwan Redding FNP [Primary Care Provider] - Discharge Diet: Advance as tolerated Discharge Activity: Increase activity as tolerated Patient Instructions: Contusion in Adults (ED), Opioid Safety Activity Restrictions/Additional Instructions: Return for worsening pain despite treatment, loss of control of bowel or bladder function that is new, mental status changes, weakness, other concerning symptoms. Coding Level of Care Code ED Shade Classifier for Mellissa Fwd Exam Comprehensive
[2021-02-01 00:26] LABS: Urine Appearance Clear (CLEAR); Urine Color Yellow (Yellow); pH Urine 5 (5-7)
[2021-02-01 00:27] LABS: Bilirubin Urine Neg (Negative); Blood Urine Neg (Negative); Glucose Urine UA Norm (Normal); Ketones Urine Negative (Negative); Leukocyte Esterase Urine Negative (Negative); Nitrate Urine Negative (Negative); Protein Urine Neg (Negative); Specific Gravity, Urine 1.005 (1.005-1.030); Urobilinogen Urine Norm (Negative)
[2021-02-01 00:55] LABS: Basophils # 0.1 10^3/uL (0.0-0.1); Basophils % 0.4 %; Eosinophils # 0.1 10^3/uL (0.0-0.8); Eosinophils % 0.9 %; Hemoglobin 12.8 g/dL (11.5-15.3); Lymphocytes # 1.5 10^3/uL (0.8-4.8); Lymphocytes % 13.1 %; Mean Corpuscular HGB Conc 32.8 g/dL (30.0-36.0); Mean Corpuscular Hemoglobin 29.2 pg (28.0-34.0); Mean Corpuscular Volume 88.8 fL (81-99); Mean Platelet Volume 9.4 fL (7.4-10.4); Monocytes # 0.8 10^3/uL (0.2-0.9); Monocytes % 6.8 %; Neutrophils # 8.93 10^3/uL (1.8-7.7); Neutrophils % 78.3 %; Nucleated Red Blood Cells % 0 %; Platelet Count 221 10^3/cmm (130-400); Red Blood Count 4.39 10^6/uL (4.1-5.3); Red Cell Distribution Width 13.3 % (12.1-15.1); White Blood Count 11.4 10^3/uL (4.0-10.0)
[2021-02-01 01:09] LABS: INR 1.78 (0.8-1.2)
[2021-02-01 01:19] LABS: Alanine Aminotransferase 21 U/L (0-33); Albumin Level 4.5 g/dL (3.5-5.2); Alkaline Phosphatase 105 IU/L (35-105); Anion Gap 14.2 (5-19); Aspartate Amino Transferase 20 U/L (0-32); Blood Urea Nitrogen 14 mg/dL (8-23); Calcium 9.2 mg/dL (8.5-10.5); Carbon Dioxide 25 mmol/L (22-29); Chloride 96 mmol/L (98-107); Creatine Phosphokinase 104 U/L (26-192); Glucose 105 mg/dL (65-115); Osmolality Calculated 273 mOsm/kg (285-295); Potassium 4.2 mmol/L (3.5-5.1); Sodium 131 mmol/L (136-145); Total Bilirubin 0.3 mg/dL (0.15-1.2); Total Protein 6.5 g/dL (6.6-8.7)
[2021-02-01 01:23] LABS: Troponin(5th) Baseline 17 ng/L (0-10)
[2021-02-01 01:24] VITALS: BP 147/76; PULSE 62; RESP 19; O2SAT 97
[2021-02-01 02:50] VITALS: BP 152/78; PULSE 65; RESP 17; O2SAT 98
[2021-02-01 03:10] LABS: Troponin 5 2HR 12.67 ng/L (0-10); Troponin 5 2HR Delta -4.33 ABS# (0-10)
== END 2021-02-01 02:50 | disposition home or self-care (01) ==
PROVIDERS: Emergency Provider Emergency Medicine; PCP Registered Nurse
DX: S30.0XXA Contusion of lower back and pelvis, initial encounter (principal); Z79.01 Long term (current) use of anticoagulants; I48.91 Unspecified atrial fibrillation; Z86.73 Personal history of transient ischemic attack (TIA), and cerebral infarction without residual deficits; F03.90 Unspecified dementia, unspecified severity, without behavioral disturbance, psychotic disturbance, mood disturbance, and anxiety; I10 Essential (primary) hypertension; W19.XXXA Unspecified fall, initial encounter
CPT/HCPCS: 70450; 72131; 72192; 80053; 81003; 82550; 84484; 85025; 85610; 93005; 99283

== ENCOUNTER → 2021-02-20 08:31 | Outpatient (BNVA) | payer MEDICARE, BC, SELFPAY | PROVIDERS: PCP Registered Nurse; Referring Provider Nurse Practitioner Family; Visit Provider Nurse Practitioner | DX: G30.1 Alzheimer's disease with late onset (principal); F02.80 Dementia in other diseases classified elsewhere, unspecified severity, without behavioral disturbance, psychotic disturbance, mood disturbance, and anxiety; R56.9 Unspecified convulsions | CPT/HCPCS: 82607; 84443; 96116; 99204 ==

== ENCOUNTER 2021-02-20 10:23 | Outpatient (CLI) | payer MEDICARE, BC, SELFPAY ==
[2021-02-20 12:19] LABS: Thyroid Stimulating Hormone 2.29 uIU/mL (0.27-4.20); Vitamin B12 399 pg/mL (232-1245)
== END 2021-02-20 10:24 | disposition home or self-care (01) ==
LOC: LAB 10:30
PROVIDERS: PCP Registered Nurse; Visit Provider Nurse Practitioner
DX: G30.1 Alzheimer's disease with late onset (principal); F02.81 Dementia in other diseases classified elsewhere, unspecified severity, with behavioral disturbance
CPT/HCPCS: 99214; 82607; 84443; 96116; 99204

== ENCOUNTER → 2021-03-09 14:58 | Outpatient (BNVA) | payer MEDICARE, BC, SELFPAY | PROVIDERS: PCP Registered Nurse; Visit Provider Specialist | DX: R56.9 Unspecified convulsions (principal); G30.1 Alzheimer's disease with late onset; F02.81 Dementia in other diseases classified elsewhere, unspecified severity, with behavioral disturbance | CPT/HCPCS: 95816 ==

== ENCOUNTER → 2021-04-15 13:37 | Outpatient (BNVA) | payer MEDICARE, BC, SELFPAY | PROVIDERS: PCP Registered Nurse; Visit Provider Nurse Practitioner | DX: G30.1 Alzheimer's disease with late onset (principal); F02.81 Dementia in other diseases classified elsewhere, unspecified severity, with behavioral disturbance | CPT/HCPCS: 99213 ==

== ENCOUNTER → 2021-09-07 10:49 | Outpatient (BNVA) | payer MEDICARE, BC, SELFPAY | PROVIDERS: PCP Registered Nurse; Visit Provider Registered Nurse | DX: E87.1 Hypo-osmolality and hyponatremia (principal) | CPT/HCPCS: 80048 ==

== ENCOUNTER 2021-09-09 15:18 | Outpatient (CLI) | payer MEDICARE, BC, SELFPAY ==
--- NOTE | 2021-09-09 15:39 | XRR_ITS ---
PROCEDURE INFORMATION: Exam: XR Chest Exam date and time: 09/09/2021 3:39 PM Age: 81 years old Clinical indication: Cough; Additional info: R05.9 - cough, unspecified TECHNIQUE: Imaging protocol: XR of the chest. Views: 2 views. COMPARISON: CR XR chest 1V portable [id number] 10/23/2019 6:50 PM FINDINGS: Lungs: Unremarkable. No consolidation. Pleural spaces: Unremarkable. No pleural effusion. No pneumothorax. Heart/Mediastinum: Unremarkable. No cardiomegaly. Bones/joints: Visualized osseous structures are intact. XR/XR chest 2V* [id number] IMPRESSION: No acute findings.
[2021-09-09 16:22] LABS: Basophils # 0.1 10^3/uL (0.0-0.1); Basophils % 0.7 %; Eosinophils # 0.4 10^3/uL (0.0-0.8); Hematocrit 38.6 % (37.0-47.0); Hemoglobin 12.2 g/dL (11.5-15.3); Lymphocytes # 1.8 10^3/uL (0.8-4.8); Lymphocytes % 15.6 %; Mean Corpuscular HGB Conc 31.6 g/dL (30.0-36.0); Mean Corpuscular Hemoglobin 28.7 pg (28.0-34.0); Mean Corpuscular Volume 90.8 fl (81-99); Mean Platelet Volume 8.8 fL (7.4-10.4); Monocytes # 0.8 10^3/uL (0.2-0.9); Neutrophils # 8.44 10^3/uL (1.8-7.7); Neutrophils % 73.2 %; Nucleated Red Blood Cells % 0 %; Platelet Count 236 10^3/cmm (130-400); Red Blood Count 4.25 10^6/uL (4.1-5.3); Red Cell Distribution Width 14.3 % (12.1-15.1); White Blood Count 11.5 10^3/uL (4.0-10.0)
[2021-09-09 16:51] LABS: NT Pro B Type Natriuretic Pept 197 pg/mL (0-450)
== END 2021-09-09 15:19 | disposition home or self-care (01) ==
LOC: RAD 15:23
PROVIDERS: PCP Registered Nurse; Visit Provider Nurse Practitioner Family
DX: R05.9 Cough, unspecified (principal); R60.9 Edema, unspecified
CPT/HCPCS: 36415; 71046; 83880; 85025

== ENCOUNTER → 2021-09-23 09:29 | Outpatient (BNVA) | payer MEDICARE, BC, SELFPAY | PROVIDERS: PCP Registered Nurse; Visit Provider Registered Nurse | DX: I48.91 Unspecified atrial fibrillation (principal) | CPT/HCPCS: 85610 ==

== ENCOUNTER → 2021-10-12 10:31 | Outpatient (BNVA) | payer MEDICARE, BC, SELFPAY | PROVIDERS: PCP Registered Nurse; Visit Provider Registered Nurse | DX: Z20.822 Contact with and (suspected) exposure to COVID-19 (principal) | CPT/HCPCS: 87426 ==

== ENCOUNTER → 2021-10-16 09:46 | Outpatient (BNVA) | payer MEDICARE, BC, SELFPAY | PROVIDERS: PCP Registered Nurse; Visit Provider Registered Nurse | DX: E87.1 Hypo-osmolality and hyponatremia (principal) | CPT/HCPCS: 80053 ==

== ENCOUNTER 2021-10-18 11:04 | Inpatient (IN) | payer MEDICARE, BC, SELFPAY ==
[2021-10-18 11:05] VITALS: BP 161/70; PULSE 67; RESP 18; TEMP 37.2; O2SAT 93
--- NOTE | 2021-10-18 11:15 | XRR_ITS ---
PROCEDURE INFORMATION: Exam: XR Chest Exam date and time: 10/18/2021 11:15 AM Age: 81 years old Clinical indication: Cough and dyspnea; Additional info: Dyspnea; Cough; Covid + TECHNIQUE: Imaging protocol: XR of the chest. Views: 1 view. COMPARISON: CR XR chest 2V* [id number] 09/09/2021 3:49 PM FINDINGS: Lungs: Unremarkable. No consolidation. Pleural spaces: Unremarkable. No pleural effusion. No pneumothorax. Heart/Mediastinum: Unremarkable. No cardiomegaly. Bones/joints: Unremarkable. XR/XR chest 1V portable [id number] IMPRESSION: No acute findings.
--- NOTE | 2021-10-18 11:15 | ECG_ITS ---
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: : 1940 Requested By: Zana Gibson Order Number: [id number] Reading MD: ONDINA BRINK Measurements Intervals [place] Rate: 61 P: 22 ME: 194 QRS: -21 QRSD: 132 T: 58 QT: 343 QTc: 346 Interpretive Statements SINUS RHYTHM INTRAVENTRICULAR CONDUCTION DELAY [130+ ms QRS DURATION] LEFT VENTRICULAR HYPERTROPHY AND ST-T CHANGE [VOLTAGE CRITERIA PLUS ST/T ABNORMALITY] POSSIBLE SEPTAL MYOCARDIAL INFARCTION , PROBABLY OLD [30 ms Q WAVE IN V1/V2] Compared to ECG 02/01/2021 00:24:05 Intraventricular conduction delay now present ST (T wave) deviation now present Myocardial infarct finding still present Electronically Signed On 10-18-2021 17:47:24 7TH GRADE SOCIAL STUDIES TEACHER by ONDINA BRINK [email or web address]/store/[id number] f
--- NOTE | 2021-10-18 11:16 | XRR_ITS ---
PROCEDURE INFORMATION: Exam: XR Lumbosacral Spine Exam date and time: 10/18/2021 11:16 AM Age: 81 years old Clinical indication: Injury or trauma; Fall; Blunt trauma (contusions or hematomas); Additional info: Pain; Fall, covid + TECHNIQUE: Imaging protocol: XR of the lumbosacral spine. Views: 2 or 3 views. COMPARISON: CT lumbar spine wo con* [id number] 02/01/2021 12:22 AM FINDINGS: Bones/joints: Mild compression deformity/fracture of the superior endplate of L1. This is age indeterminate but favored chronic given thin linear sclerotic change at site of fracture. This is new from most recent comparison 02/01/2021. Grade 1 anterolisthesis of L3 on L4. Soft tissues: Unremarkable. XR/XR lumbar spine 2-3V* [id number] IMPRESSION: Mild compression deformity/fracture of the superior endplate of L1. Age indeterminate, but favored chronic, new from most recent comparison 02/01/2021.
--- NOTE | 2021-10-18 11:16 | XRR_ITS ---
PROCEDURE INFORMATION: Exam: XR Pelvis Exam date and time: 10/18/2021 11:16 AM Age: 81 years old Clinical indication: Injury or trauma; Fall; Blunt trauma (contusions or hematomas); Bilateral; Pelvic region; Additional info: Pain; Fall TECHNIQUE: Imaging protocol: XR pelvis. Views: 1 or 2 view. COMPARISON: CT pelvis wo con [id number] 02/01/2021 12:25 AM FINDINGS: Bones/joints: No acute fracture. 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 Soft tissues: Unremarkable. XR/XR pelvis 1-2V* [id number] IMPRESSION: No acute findings.
--- NOTE | 2021-10-18 11:19 | ED_ITS ---
HPI - COVID General: Chief Complaint: COVID symptoms Stated Complaint: WEAKNESS; COVID + Time Seen by Provider: 10/18/21 11:14 Source: patient and EMS Mode of arrival: EMS Limitations: other (dementia) Triage information: Has fever, cough or shortness of breath . Exposure to COVID + person last 14 days History of Present Illness: HPI Narrative: Patient complains of low back pain. According to EMS, patient has fallen a couple times in the last few days. No head injury. Patient only complains of upper lumbar pain. Reportedly patient has had some shortness of breath at times and is on 2 L by nasal cannula at the half-way. Patient has dementia and is a poor historian. She denies any chest pain. She denies any fever. Reportedly she has been symptomatic with cough for approximately 8 days. She was tested approximately 6 days ago and tested positive for COVID. complaint: known COVID positive Prior covid testing: yes, results known Prior testing date: 10/13/21 COVID 19 common symptoms: positive cough, dyspnea and fatigue; negative headache(s), throat pain, nausea or vomiting COVID 19 other sytmptoms: positive requiring oxygen; negative chest pain Onset (ago): day(s) (8) Severity: moderate Pertinent comorbid conditions: on home oxygen (2l/min nc) Treatment prior to arrival: none COVID Results: SARS-CoV-2 Antigen (Rapid) Positive (Negative) H 10/12/21 10:31 10/12/21 Review of Systems Const: Reports: fatigue Eyes: Denies: change in vision ENMT: Denies: throat pain Card: Denies: chest pain or palpitations Resp: Reports: dyspnea GI: Denies: abdominal pain, nausea or vomiting : Denies: flank pain Musc: Reports: back pain; Denies: neck pain, extremity swelling, joint pain or joint swelling Skin/Breast: Denies: rash or pruritus Neuro: Denies: headache(s) or numbness in extremities Psych: Denies: anxiety Eduardo/Lymph: Denies: enlarged lymph nodes PFSH ED PFSH: Medical History Atrial fibrillation CVA (cerebrovascular accident) Dementia Hypertension Seizure-like activity Vertigo as late effect of cerebrovascular accident (CVA) Surgical History H/O elbow surgery H/O thyroidectomy Social History Alcohol intake: never History of recent travel: No Physical Exam Const: COMMON NORMALS: no acute distress, no limitations, alert and well nourished EXAM LIMITATIONS: no altered mental status GENERAL APPEARANCE: cooperative and well kempt ORIENTATION/CONSCIOUSNESS: Yes awake and Yes oriented to person OTHER: Patient has moderate dementia. She is awake alert. Occasional harsh cough. Does not appear in any respiratory distress. HENMT: COMMON NORMALS: normocephalic and atraumatic HEAD & SCALP: normocephalic and atraumatic FACE & SINUS: normal facial exam Eye: COMMON NORMALS: EOMs intact bilaterally Neck/C-Spine: COMMON NORMALS: full ROM, no lymphadenopathy, supple, no meningeal signs and no JVD GENERAL: Yes normal visual inspection Lymph: LYMPHATIC: no lymphadenopathy noted Chest: COMMONS NORMALS: normal inspection of the chest and normal palpation of entire chest wall CHEST: No Ecchymosis present and No rash Resp: COMMON NORMALS: normal respiratory effort, No retractions, No use of accessory muscles and clear to auscultation bilaterally EFFORT & INSPECTION: No respiratory distress AUSCULTATION: clear to auscultation bilaterally Cardio: COMMON NORMALS: no JVD, regular rate, regular rhythm and Peripheral pulses 2+ throughout JUGULAR VENOUS DISTENTION: no JVD RATE: regular rate RHYTHM: regular rhythm PERIPHERAL PULSES: Peripheral pulses 2+ throughout GI: COMMON NORMALS: Normal to inspection, nondistended, normoactive bowel sounds present, Soft to palpation, non-tender, No hepatosplenomegaly present and no masses PALPATION: Yes Soft to palpation and Yes No hepatosplenomegaly present : COMMON NORMALS: Yes no CVA tenderness BLADDER/KIDNEY EXAM: Yes no CVA tenderness Back/Pelvis: COMMON NORMALS: no CVA tenderness LUMBAR SPINE/LOWER BACK: Yes paraspinal muscle tenderness (Upper half of the lumbar spine. No step-off. No rash or abrasion) Lumbar paraspinal muscle tenderness: bilateral Extremity: COMMON NORMALS: normal to inspection, full ROM, capillary refill normal and no clubbing, cyanosis or edema Neuro: COMMON NORMALS: CN's II-XII intact bilaterally, no focal motor deficits and no sensory deficits noted SENSORIUM/ORIENTATION: Yes alert and Yes oriented to person MENINGEAL SIGNS: Yes no meningeal signs Psych: COMMON NORMALS: cooperative (Demented), normal affect, speech normal and activity/motor behavior normal APPEARANCE: Yes well kempt SPEECH: Yes normal speech Skin: COMMON NORMALS: no rashes or lesions noted, no wounds, no jaundice and no petechiae GENERAL SKIN EXAM: no rashes or lesions noted Course Vital Signs: Vital signs: Vital Signs Temperature 99.0 F 10/18/21 11:05 Pulse Rate 67 10/18/21 11:05 Respiratory Rate 18 10/18/21 11:05 Blood Pressure 161/70 10/18/21 11:05 Pulse Oximetry 97 10/18/21 13:40 MDM - COVID MDM Narrative: Medical decision making narrative: 1455: d/w dr. mercado hospitalist. will admit Lab Data: Attestation: I reviewed the patient's lab results. Labs: Lab Results 10/18/21 10/18/21 10/18/21 11:50 11:50 11:50 WBC 6.5 10^3/uL 10^3/ uL (4.0-10.0) RBC 4.58 10^6/uL 10^6 /uL (4.1-5.3) Hgb 13.5 g/dL g/dL (11.5-15.3) Hct 40.9 % % (37.0-47.0) MCV 89.3 fl fl (81-99) MCH 29.5 pg pg (28.0-34.0) MCHC 33.0 g/dL g/dL (30.0-36.0) RDW 14.1 % % (12.1-15.1) Plt Count 185 10^3/cmm 10^3 /cmm (130-400) MPV 9.0 fL fL (7.4-10.4) Neut % (Auto) 74.5 % % Lymph % (Auto) 12.4 % % [place] % (Auto) 11.3 % % Eos % (Auto) 0.9 % % Baso % (Auto) 0.3 % % Neut # (Auto) 4.87 10^3/uL 10^3 /uL (1.8-7.7) Lymph # (Auto) 0.8 10^3/uL 10^3/ uL (0.8-4.8) [place] # (Auto) 0.7 10^3/uL 10^3/ uL (0.2-0.9) Eos # (Auto) 0.1 10^3/uL 10^3/ uL (0.0-0.8) Baso # (Auto) 0.0 10^3/uL 10^3/ uL (0.0-0.1) Nucleated RBC % (a uto) 0 % % Nucleated RBCs # 0.0 /100WBC /100W BC PT INR APTT Sodium 130 mmol/L L mmol /L (136-145) Potassium 3.0 mmol/L L mmol /L (3.5-5.1) Chloride 90 mmol/L L mmol/ L (98-107) Carbon Dioxide 26 mmol/L mmol/L (22-29) Anion Gap 17.0 (5-19) BUN 6 mg/dL L mg/dL (8-23) Creatinine 0.7 mg/dL mg/dL (0.5-0.9) GFR Calculation Not Reportable Glucose 112 mg/dL mg/dL (65-115) Calculated Osmolal ity 268 mOsm/kg L mOs m/kg (285-295) Lactate 0.7 mmol/L mmol/L (0.5-2.2) Calcium 8.7 mg/dL mg/dL (8.5-10.5) Troponin T Baselin e Troponin T 120 Min [place] Delta Troponin T NT-Pro-B Natriuret Pep 275 pg/mL pg/mL (0-450) 10/18/21 10/18/21 10/18/21 11:50 11:50 13:47 WBC RBC Hgb Hct MCV MCH MCHC RDW Plt Count MPV Neut % (Auto) Lymph % (Auto) [place] % (Auto) Eos % (Auto) Baso % (Auto) Neut # (Auto) Lymph # (Auto) [place] # (Auto) Eos # (Auto) Baso # (Auto) Nucleated RBC % (a uto) Nucleated RBCs # PT 14.20 SECONDS SEC ONDS (12.1-14.9) INR 1.06 (0.8-1.2) APTT 27.8 SECONDS SECO NDS (23.9-36.7) Sodium Potassium Chloride Carbon Dioxide Anion Gap BUN Creatinine GFR Calculation Glucose Calculated Osmolal ity Lactate Calcium Troponin T Baselin e 15 ng/L H ng/L (0-10) Troponin T 120 Min [place] 14.07 ng/L H ng/L (0-10) Delta Troponin T -0.93 ABS# L ABS# (0-10) NT-Pro-B Natriuret Pep Imaging Data: CXR: Attestation: I personally reviewed and interpreted this imaging study as follows: My impression: Nothing acute. Radiologist's impression: PROCEDURE INFORMATION: Exam: XR Chest Exam date and time: 10/18/2021 11:15 AM Age: 81 years old Clinical indication: Cough and dyspnea; Additional info: Dyspnea; Cough; Covid + TECHNIQUE: Imaging protocol: XR of the chest. Views: 1 view. COMPARISON: CR XR chest 2V* [id number] 09/09/2021 3:49 PM FINDINGS: Lungs: Unremarkable. No consolidation. Pleural spaces: Unremarkable. No pleural effusion. No pneumothorax. Heart/Mediastinum: Unremarkable. No cardiomegaly. Bones/joints: Unremarkable. XR/XR chest 1V portable [id number] IMPRESSION: No acute findings. Dictated By:Ryne Luo DOSigned By:Ryne Luo Da te/Time:10/18/21 1247 Other Xray: Attestation: I personally reviewed and interpreted this imaging study as follows: My impression: Lumbar spine x-ray shows mild compression of L1 vertebra. This is a new change from January [address] of the lumbar spine then. Radiologist's impression: PROCEDURE INFORMATION: Exam: XR Lumbosacral Spine Exam date and time: 10/18/2021 11:16 AM Age: 81 years old Clinical indication: Injury or trauma; Fall; Blunt trauma (contusions or hematomas); Additional info: Pain; Fall, covid + TECHNIQUE: Imaging protocol: XR of the lumbosacral spine. Views: 2 or 3 views. COMPARISON: CT lumbar spine wo con* [id number] 02/01/2021 12:22 AM FINDINGS: Bones/joints: Mild compression deformity/fracture of the superior endplate of L1. This is age indeterminate but favored chronic given thin linear sclerotic change at site of fracture. This is new from most recent comparison 02/01/2021. Grade 1 anterolisthesis of L3 on L4. Soft tissues: Unremarkable. XR/XR lumbar spine 2-3V* [id number] IMPRESSION: Mild compression deformity/fracture of the superior endplate of L1. Age indeterminate, but favored chronic, new from most recent comparison 02/01/2021. Dictated By:Ryne Luo DOSigned By:Ryne Luo DOSmalgorzata Date/Ti me:10/18/21 1253 Xray Ortho: Attestation: I personally reviewed and interpreted this imaging study as follows: My impression: X-ray of the pelvis shows nothing acute. Hips appear normal. Radiologist's impression: PROCEDURE INFORMATION: Exam: XR Pelvis Exam date and time: 10/18/2021 11:16 AM Age: 81 years old Clinical indication: Injury or trauma; Fall; Blunt trauma (contusions or hematomas); Bilateral; Pelvic region; Additional info: Pain; Fall TECHNIQUE: Imaging protocol: XR pelvis. Views: 1 or 2 view. COMPARISON: CT pelvis wo con [id number] 02/01/2021 12:25 AM FINDINGS: Bones/joints: No acute fracture. 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 Soft tissues: Unremarkable. XR/XR pelvis 1-2V* [id number] IMPRESSION: No acute findings. Dictated By:Ryne Luo DOSigned By:Ryne Luo DOSmalgorzata Date/Time:10/18/[address]: Radiologist's impression: PROCEDURE INFORMATION: Exam: CT Lumbar Spine Without Contrast Exam date and time: 10/18/2021 12:22 PM Age: 81 years old Clinical indication: Low back pain; Additional info: Pain; Injury; Abnormal L spine film, l1 compression fracture; Appears new from CT in January 2021 TECHNIQUE: Imaging protocol: Computed tomography images of the lumbar spine without contrast. Radiation optimization: All CT scans at this facility use at least one of these dose optimization techniques: automated exposure control; mA and/or kV adjustment per patient size (includes targeted exams where dose is matched to clinical indication); or iterative reconstruction. COMPARISON: CT lumbar spine wo con* [id number] 02/01/2021 12:22 AM RADIATION DOSE METRICS: Total DLP (mGy-cm): 2346.58 FINDINGS: Vertebrae: Mild compression deformity/fracture at the superior endplate of L1 with an estimated vertebral body height loss of 25%. No retropulsion. Thin sclerotic signal at the fracture site suggesting chronic etiology. This is new from most recent comparison 02/01/2021. The rest of the vertebral body heights are intact. Grade 1 anterolisthesis of L3 on L4. Discs/Spinal canal/Neural foramina: No significant disc protrusion. No severe spinal canal stenosis. No significant neural foraminal narrowing. Soft tissues: Unremarkable. CT/CT lumbar spine wo con* [id number] IMPRESSION: Chronic appearing mild compression deformity/fracture along the superior endplate of L1, which is new from most recent comparison 02/01/2021. Dictated By:Ryne Luo DOSigned By:Ryne Luo DOSigned Date/Time:10/18/21 1343 EKG Data: EKG 1: Attestation: I personally reviewed and interpreted this EKG as follows: EKG interpretation date: 10/18/21 EKG interpretation time: 11:30 Prior EKG tracings: not available for review Interpretation: Normal sinus rhythm with left IVCD, left axis, normal ST segment, normal T waves. Normal NC interval., LVH COVID Results: SARS-CoV-2 Antigen (Rapid) Positive (Negative) H 10/12/21 10:31 10/12/21 Discharge Plan Discharge Clinical Impression: Bronchitis, COVID-19 virus infection, Acute hypokalemia, Chronic hyponatremia Compression fracture of lumbar vertebra Qualifiers: Encounter type: initial encounter Lumbar vertebra fracture level: L1 Qualified Code(s): S32.010A - Wedge compression fracture of first lumbar vertebra, initial encounter for closed fracture Condition: Stable Prescriptions: No Action Lactobacillus acidophilus [Acidophilus] Capsule 100 mg PO DAILY RF: 0 ascorbic acid (vitamin C) 500 mg capsule PO RF: 0 coenzyme Q10 100 mg capsule 100 mg PO DAILY RF: 0 omega-3 fatty acids [Fish Oil Concentrate] 1,000 mg capsule 1,000 mg PO DAILY RF: 0 lysine 500 mg tablet 500 mg PO DAILY RF: 0 pravastatin 40 mg tablet 40 mg PO DAILY RF: 0 Shower chair See Rx Instructions .ROUTE .COMPLEX Qty: 1 RF: 0 Incontinence supplies See Rx Instructions .ROUTE .COMPLEX Qty: 1 RF: 0 benzonatate 200 mg capsule 200 mg PO BID 15 Days Qty: 30 RF: 0 Eliquis 2.5 mg tablet 2.5 mg PO BID 90 Days Qty: 180 RF: 0 ferrous sulfate 28 mg iron tablet PO RF: 0 ranitidine HCl 150 mg capsule PO RF: 0 Hold Instructions: Patient No Longer Taking losartan 50 mg tablet 25 mg PO DAILY 30 Days Qty: 30 RF: 0 warfarin 5 mg tablet 5 mg PO .COMPLEX Qty: 60 RF: 0 fluticasone propionate [Allergy Relief (fluticasone)] 50 mcg/actuation spray,suspension 1 spray INTRANASAL DAILY Qty: 16 RF: 5 diltiazem HCl 120 mg capsule,extended release 24hr See Rx Instructions .ROUTE .COMPLEX Qty: 90 RF: 0 donepezil 23 mg tablet See Rx Instructions .ROUTE .COMPLEX Qty: 90 RF: 0 warfarin 7.5 mg tablet See Rx Instructions .ROUTE .COMPLEX Qty: 90 RF: 0 memantine [Namenda] 5 mg tablet 10 mg PO BID Qty: 60 RF: 2 albuterol sulfate 2.5 mg /3 mL (0.083 %) solution for nebulization 2.5 mg inhalation Q8H PRN (Reason: bronchospasm) Qty: 90 RF: 0 ondansetron HCl 4 mg tablet See Rx Instructions .ROUTE .COMPLEX Qty: 10 RF: 0 Referrals: Rizawn Redding FNP [Primary Care Provider] - Coding Level of Care Code ED Monogram Operator for Stephong Fwd Exam Comprehensive
[2021-10-18 12:14] LABS: Basophils % 0.3 %; Eosinophils # 0.1 10^3/uL (0.0-0.8); Eosinophils % 0.9 %; Hematocrit 40.9 % (37.0-47.0); Hemoglobin 13.5 g/dL (11.5-15.3); Lymphocytes # 0.8 10^3/uL (0.8-4.8); Lymphocytes % 12.4 %; Mean Corpuscular Hemoglobin 29.5 pg (28.0-34.0); Mean Corpuscular Volume 89.3 fl (81-99); Monocytes # 0.7 10^3/uL (0.2-0.9); Monocytes % 11.3 %; Neutrophils # 4.87 10^3/uL (1.8-7.7); Neutrophils % 74.5 %; Nucleated Red Blood Cells % 0 %; Platelet Count 185 10^3/cmm (130-400); Red Blood Count 4.58 10^6/uL (4.1-5.3); Red Cell Distribution Width 14.1 % (12.1-15.1); White Blood Count 6.5 10^3/uL (4.0-10.0)
--- NOTE | 2021-10-18 12:22 | CTR_ITS ---
PROCEDURE INFORMATION: Exam: CT Lumbar Spine Without Contrast Exam date and time: 10/18/2021 12:22 PM Age: 81 years old Clinical indication: Low back pain; Additional info: Pain; Injury; Abnormal L spine film, l1 compression fracture; Appears new from CT in January 2021 TECHNIQUE: Imaging protocol: Computed tomography images of the lumbar spine without contrast. Radiation optimization: All CT scans at this facility use at least one of these dose optimization techniques: automated exposure control; mA and/or kV adjustment per patient size (includes targeted exams where dose is matched to clinical indication); or iterative reconstruction. COMPARISON: CT lumbar spine wo con* [id number] 02/01/2021 12:22 AM RADIATION DOSE METRICS: Total DLP (mGy-cm): 2346.58 FINDINGS: Vertebrae: Mild compression deformity/fracture at the superior endplate of L1 with an estimated vertebral body height loss of 25%. No retropulsion. Thin sclerotic signal at the fracture site suggesting chronic etiology. This is new from most recent comparison 02/01/2021. The rest of the vertebral body heights are intact. Grade 1 anterolisthesis of L3 on L4. Discs/Spinal canal/Neural foramina: No significant disc protrusion. No severe spinal canal stenosis. No significant neural foraminal narrowing. Soft tissues: Unremarkable. CT/CT lumbar spine wo con* [id number] IMPRESSION: Chronic appearing mild compression deformity/fracture along the superior endplate of L1, which is new from most recent comparison 02/01/2021.
[2021-10-18 12:38] LABS: INR 1.06 (0.8-1.2); Partial Thromboplastin Time 27.8 SECONDS (23.9-36.7)
[2021-10-18 12:47] LABS: Lactate (Lactic Acid level) 0.7 mmol/L (0.5-2.2); Troponin(5th) Baseline 15 ng/L (0-10)
[2021-10-18 12:56] LABS: Blood Urea Nitrogen 6 mg/dL (8-23); Calcium 8.7 mg/dL (8.5-10.5); Carbon Dioxide 26 mmol/L (22-29); Chloride 90 mmol/L (98-107); Glucose 112 mg/dL (65-115); NT Pro B Type Natriuretic Pept 275 pg/mL (0-450); Osmolality Calculated 268 mOsm/kg (285-295); Sodium 130 mmol/L (136-145)
[2021-10-18 13:40] VITALS: O2SAT 97
[2021-10-18 14:21] LABS: Troponin 5 2HR 14.07 ng/L (0-10)
[2021-10-18 14:26] LABS: Troponin 5 2HR Delta -0.93 ABS# (0-10)
[2021-10-18] MEDS: potassium chloride ER 20 mEq Tablet 40 MEQ PO (14:34)
--- NOTE | 2021-10-18 14:57 | P.HP_ITS ---
Providers/Chief Complaint Primary Care Provider: WES Monson Chief Complaint: WEAKNESS; COVID + History of Present Illness Hali Ga is a 81 year old female who has been exposed to her family members who are suffering from COVID infection, came in today for worsening confusion and a fall. As per her daughters, her symptoms started on 10/08 with cough and shortness of breath, she tested positive on 10/12. Since then she has been very confused, she is not sure where she is sometimes forgets to go to the bathroom, she has been swelling herself with urine, she was found naked at some point as well in her home, since 10/12 she has been requiring 1 to 2 L of oxygen at home, no fever, nausea, vomiting or chest pain reported. She felt on Tuesday for 10/14, EMS evaluated her and recommended staying in the home today family brought her back because of worsening confusion. In the ER she is on room air saturating 95%, still confused, oriented to herself, normal CBC, BMP with hypokalemia, L1 fracture without spinal cord compression, no signs of cauda equina D[facility] We will touch base with event planner Daughter will provide us with a living will, Ms. Tamayo is her DPOA she is full code for now Review of Systems Const: Reports: chills, body aches, fatigue and malaise Eyes: Denies: change in vision ENMT: Denies: throat pain Card: Denies: chest pain Resp: Reports: dyspnea GI: Denies: abdominal pain : Denies: flank pain Musc: Denies: neck pain Skin/Breast: Denies: rash Neuro: Denies: headache(s) Psych: Reports: anxiety and depression Endo: Denies: polyuria Eduardo/Lymph: Denies: easy bruising All/Imm: Denies: urticaria Medications/Allergies Home Medications Medication Instructions Recorded Confirmed Last Taken Type Lactobacillus acidophilus 100 mg PO DAILY 11/28/19 10/18/21 Unknown History ascorbic acid (vitamin C) 500 mg 500 mg PO DAILY 11/28/19 10/18/21 Unknown History capsule coenzyme Q10 100 mg capsule 100 mg PO DAILY 11/28/19 10/18/21 Unknown History lysine 500 mg tablet 500 mg PO DAILY 11/28/19 10/18/21 Unknown History omega-3 fatty acids 1,000 mg 1,000 mg PO DAILY 11/28/19 10/18/21 Unknown History capsule pravastatin 40 mg tablet 40 mg PO DAILY 11/28/19 10/18/21 Unknown History ferrous sulfate 28 mg iron tablet 28 mg PO DAILY 02/20/21 10/18/21 Unknown History warfarin 5 mg tablet 5 mg PO .COMPLEX #60 tab 03/26/21 10/12/21 Unknown Rx fluticasone propionate 50 1 spray INTRANASAL DAILY #16 g 06/03/21 10/18/21 Unknown Rx mcg/actuation nasal spray,suspension Incontinence supplies See Rx Instructions .ROUTE 06/05/21 10/18/21 Unknown Rx .COMPLEX #1 ea Shower chair See Rx Instructions .ROUTE 06/05/21 10/12/21 Unknown Rx .COMPLEX #1 ea diltiazem HCl 120 mg See Rx Instructions .ROUTE 06/26/21 10/18/21 Unknown Rx capsule,extended release 24 hr .COMPLEX #90 cap donepezil 23 mg tablet See Rx Instructions .ROUTE 07/14/21 10/18/21 Unknown Rx .COMPLEX #90 tablet warfarin 7.5 mg tablet See Rx Instructions .ROUTE 07/21/21 10/12/21 Unknown Rx .COMPLEX #90 tab memantine 5 mg tablet 10 mg PO BID #60 tab 09/07/21 10/18/21 Unknown Rx albuterol sulfate 2.5 mg INHALATION Q8H PRN #90 ml 09/11/21 10/18/21 Unknown Rx apixaban 2.5 mg tablet 2.5 mg PO BID 90 Days #180 tab 09/23/21 10/18/21 Unknown Rx benzonatate 200 mg capsule 200 mg PO BID 15 Days #30 cap 09/23/21 10/18/21 Unknown Rx ondansetron HCl 4 mg tablet See Rx Instructions .ROUTE 09/24/21 10/18/21 Unknown Rx .COMPLEX #10 tab amlodipine 5 mg PO DAILY 10/18/21 10/18/21 Unknown History hydrochlorothiazide 12.5 mg PO DAILY 10/18/21 10/18/21 Unknown History losartan 50 mg PO BID 10/18/21 10/18/21 Unknown History Allergies Allergy/AdvReac Type Severity Reaction Status Date / Time azithromycin [From Zithromax] Allergy unknown Verified 09/23/21 09:18 Sulfa (Sulfonamide Allergy Unknown Verified 09/23/21 09:18 Antibiotics) Thiazides Allergy Unknown Verified 09/23/21 09:18 PFSH Acute PFSH: Medical History Atrial fibrillation CVA (cerebrovascular accident) Dementia Hypertension Seizure-like activity Vertigo as late effect of cerebrovascular accident (CVA) Surgical History H/O elbow surgery H/O thyroidectomy Family History Other Family history non-contributory Social History Alcohol intake: never History of recent travel: No Vitals/I&O/Wt Last Vital Signs Temp 99.0 F 10/18/21 11:05 Pulse 67 10/18/21 11:05 Resp 18 10/18/21 11:05 BP 161/70 10/18/21 11:05 Pulse Ox 97 10/18/21 13:40 Physical Exam Narrative: EXAM NARRATIVE: elderly female Looks well Euvolemic Oriented to herself Able to move her upper and lower extremities Does not look dehydrated or malnourished S1, S2 Bilateral breath sounds with mild rhonchi at the bases Abdomen soft Very pleasant and cooperative during my evaluation Hard of hearing Data : 10/18/21 11:50 10/18/21 11:50 Micro: Microbiology 10/18/21 12:03 Blood Culture - Preliminary Blood SPECIMEN COLLECTED 10/18/21 11:50 Blood Culture - Preliminary Blood SPECIMEN COLLECTED A&P Assessment and plan (1) Compression fracture of lumbar vertebra: Status: Acute Qualifiers: Encounter type: initial encounter Lumbar vertebra fracture level: L1 Qualified Code(s): S32.010A - Wedge compression fracture of first lumbar vertebra, initial encounter for closed fracture (2) COVID-19 virus infection: Status: Acute (3) Acute hypokalemia: Status: Acute (4) Dementia: Status: Acute Qualifiers: Dementia type: Alzheimer's disease Alzheimer's disease onset: late- onset Dementia behavioral disturbance: with behavioral disturbance Qualified Code(s): G30.1 - Alzheimer's disease with late onset; F02.81 - Dementia in other diseases classified elsewhere with behavioral disturbance (5) Atrial fibrillation: Status: Chronic Additional A&P Information Hypoactive delirium with underlying dementia Most likely related to COVID-19 Will follow-up with [facility] No acute neurological deficits Normal TSH and low normal B12, will start intermuscular B12 supplementation COVID-19 Symptoms started on 10/08 Tested +10/12 Currently doing well on room air I will hold off on adding remdesivir, start Decadron Patient is full code L1 compression fracture without signs of cauda equina Pain management Hypokalemia: Potassium repleted Check magnesium level History of dementia: Continue medications A. fib without RVR: Continue Eliquis and AV milo blocking agent Hypertension: Hold hydrochlorothiazide continue losartan and amlodipine Full code Cardiac diet DVT prophylaxis: We will get Eliquis Will need jail placement Attestations Medical Necessity Statement*: More than 2 midnights anticipated Time Spent in Patient Care: Greater than 35 minutes Coding Level of Care Code Acute Kettle Coordinator for Chg Fwd Diagnoses Compression fracture of lumbar vertebra S32.010A Encounter type: initial encounter Lumbar vertebra fracture level: L1 COVID-19 virus infection U07.1 Acute hypokalemia E87.6 Dementia G30.1; F02.81 Dementia type: Alzheimer's disease Alzheimer's disease onset: late-onset Dementia behavioral disturbance: with behavioral disturbance Atrial fibrillation I48.91
[2021-10-18 16:47] VITALS: BP 163/92; PULSE 76; RESP 18; O2SAT 97
[2021-10-18 17:57] VITALS: PULSE 78; O2SAT 94
[2021-10-18] MEDS: memantine 5 mg tablet 10 MG PO (18:09)
[2021-10-18] MEDS: benzonatate 100 mg Capsule 200 MG PO (18:09)
[2021-10-18] MEDS: apixaban 5 mg Tablet 2.5 MG PO (18:10)
[2021-10-18] MEDS: losartan 50 mg Tablet PO (18:11)
[2021-10-18 18:20] LABS: Troponin 5 6HR 14.03 ng/L (0-10)
[2021-10-18 18:31] LABS: Troponin 5 6HR Delta -0.97 ng/L (0-12)
[2021-10-18 22:00] VITALS: PULSE 68
[2021-10-19] VITALS (11 sets, daily range): BP systolic 137–184; BP diastolic 63–73; PULSE 64–96; RESP 14–20; TEMP 36.8–37.1; O2SAT 92–97
[2021-10-19 03:19] LABS: ABG PCO2 45.2 mmHg (35-45); ABG PH Result 7.47 (7.35-7.45); Arterial Blood Gas Hematocrit 36.6 % (37-47); Base Excess ABG 7.8 mmol/L (-2.0-2.0); Blood Gas Allen Test Pos; Blood Gas Sample Site Radial, left; Blood Gas Sample Type Arterial; HCO3 ABG 32.5 mmol/L (22-26); Oxygen Device ROOM AIR; PO2 ABG 48.3 mmHg (80.0-100.0)
[2021-10-19 06:15] LABS: Basophils % 0.5 %; Eosinophils # 0.1 10^3/uL (0.0-0.8); Eosinophils % 1.4 %; Hematocrit 35.6 % (37.0-47.0); Hemoglobin 11.6 g/dL (11.5-15.3); Lymphocytes # 1.4 10^3/uL (0.8-4.8); Lymphocytes % 23.5 %; Mean Corpuscular HGB Conc 32.6 g/dL (30.0-36.0); Mean Corpuscular Hemoglobin 29.3 pg (28.0-34.0); Mean Corpuscular Volume 89.9 fl (81-99); Mean Platelet Volume 9.7 fL (7.4-10.4); Monocytes # 0.9 10^3/uL (0.2-0.9); Monocytes % 14.7 %; Neutrophils # 3.47 10^3/uL (1.8-7.7); Nucleated Red Blood Cells % 0 %; Platelet Count 177 10^3/cmm (130-400); Red Blood Count 3.96 10^6/uL (4.1-5.3); Red Cell Distribution Width 14.1 % (12.1-15.1); White Blood Count 5.9 10^3/uL (4.0-10.0)
[2021-10-19 06:28] LABS: Anion Gap 15.5 (5-19); Blood Urea Nitrogen 6 mg/dL (8-23); Calcium 8.5 mg/dL (8.5-10.5); Carbon Dioxide 25 mmol/L (22-29); Chloride 94 mmol/L (98-107); Glucose 106 mg/dL (65-115); Magnesium 1.9 mg/dL (1.7-2.3); Osmolality Calculated 270 mOsm/kg (285-295); Potassium 3.5 mmol/L (3.5-5.1); Sodium 131 mmol/L (136-145)
[2021-10-19 07:26] LABS: Slide Review Slide Review Perform
[2021-10-19] MEDS: amlodipine 5 mg Tablet PO (10:24)
[2021-10-19] MEDS: losartan 50 mg Tablet PO ×2 (10:24→17:19)
[2021-10-19] MEDS: apixaban 5 mg Tablet 2.5 MG PO ×2 (10:24→17:19)
[2021-10-19] MEDS: memantine 5 mg tablet 10 MG PO ×2 (10:24→17:19)
[2021-10-19] MEDS: dilTIAZem ER (24HR) 120 mg Capsule PO (10:24)
[2021-10-19] MEDS: sennosides-docusate Tablet 1 TAB PO (10:24)
[2021-10-19] MEDS: ascorbic acid 500 mg Tablet PO (10:24)
[2021-10-19] MEDS: benzonatate 100 mg Capsule 200 MG PO ×2 (10:24→17:19)
[2021-10-19] MEDS: dexamethasone 4 mg Tablet 6 MG PO (10:25)
[2021-10-19] MEDS: remdesivir 200 MG in sodium chloride 0.9% (100 ml) 60 ML 100 MG IV (10:29)
--- NOTE | 2021-10-19 10:49 | PM.PN ---
Subjective Subjective: Interval history: Patient is doing well, endorsing dry cough, saturating well on 2 L nasal cannula No active shortness of breath No chest pain No active back pain as well she was eating breakfast when entered the room Excessive bouts of cough noted Vitals/I&O/Wt Last Vital Signs Temp 98.7 F 10/19/21 04:52 Pulse 76 10/19/21 09:43 Resp 20 H 10/19/21 07:38 BP 137/72 10/19/21 10:24 Pulse Ox 92 10/19/21 09:43 10/18/21 10/19/21 10/19/21 22:59 06:59 14:59 Intake Total 360 / 360 Balance 360 / 360 Physical Exam Narrative: EXAM NARRATIVE: Patient was sitting comfortably in her bed saturating well on 2 L nasal cannula No conversational dyspnea or respiratory distress S1, S2 Abdomen soft No audible stridor or wheezing No signs of edema Eating breakfast Nonfocal neuro exam Data : 10/19/21 05:25 10/19/21 05:25 Micro: Microbiology 10/18/21 12:03 Blood Culture - Preliminary Blood SPECIMEN COLLECTED 10/18/21 11:50 Blood Culture - Preliminary Blood SPECIMEN COLLECTED A&P Assessment and plan (1) Compression fracture of lumbar vertebra: Status: Acute Qualifiers: Encounter type: initial encounter Lumbar vertebra fracture level: L1 Qualified Code(s): S32.010A - Wedge compression fracture of first lumbar vertebra, initial encounter for closed fracture (2) Bronchitis: Status: Acute (3) COVID-19 virus infection: Status: Acute (4) Acute hypokalemia: Status: Acute (5) Chronic hyponatremia: Status: Acute (6) Hyponatremia: Status: Acute (7) Dementia: Status: Acute Qualifiers: Dementia type: Alzheimer's disease Alzheimer's disease onset: late-onset Dementia behavioral disturbance: with behavioral disturbance Qualified Code(s): G30.1 - Alzheimer's disease with late onset; F02.81 - Dementia in other diseases classified elsewhere with behavioral disturbance (8) Atrial fibrillation: Status: Chronic Additional A&P Information COVID-19 related weakness Currently doing well on 2 L nasal cannula Continue Decadron and remdesivir L1 compression fracture: Pain management no signs of cauda equina Hypokalemia: Repleted, will give her 40 mEq KCl p.o. Chronic hyponatremia, sodium 131 long-term uses swing bed inpatient care manager rn updated Dispenser is her DPOA who is planning to bring in her living will Full code Cardiac diet DVT prophylaxis not needed as she is on Eliquis A. fib without RVR Attestations Medical Necessity Statement*: Continue medical management Time Spent in Patient Care: less than 15 minutes Coding Level of Care Code Acute Deputy Coroner Investigator for Chg Fwd Diagnoses Compression fracture of lumbar vertebra S32.010A Encounter type: initial encounter Lumbar vertebra fracture level: L1 Bronchitis J40 COVID-19 virus infection U07.1 Acute hypokalemia E87.6 Chronic hyponatremia E87.1 Hyponatremia E87.1 Dementia G30.1; F02.81 Dementia type: Alzheimer's disease Alzheimer's disease onset: late-onset Dementia behavioral disturbance: with behavioral disturbance Atrial fibrillation I48.91
[2021-10-20] VITALS (10 sets, daily range): BP systolic 123–179; BP diastolic 68–89; PULSE 54–79; RESP 16–18; TEMP 36.7–37.1; O2SAT 92–95
[2021-10-20] MEDS: remdesivir 100 MG in sodium chloride 0.9% (100 ml) 100 ML IV (05:49)
[2021-10-20 07:27] LABS: Basophils % 0.2 %; Hematocrit 36.6 % (37.0-47.0); Lymphocytes % 15.1 %; Mean Corpuscular HGB Conc 32.8 g/dL (30.0-36.0); Mean Corpuscular Hemoglobin 29.1 pg (28.0-34.0); Mean Corpuscular Volume 88.6 fl (81-99); Mean Platelet Volume 9.4 fL (7.4-10.4); Monocytes # 0.9 10^3/uL (0.2-0.9); Monocytes % 13.4 %; Neutrophils # 4.57 10^3/uL (1.8-7.7); Neutrophils % 70.7 %; Nucleated Red Blood Cells % 0 %; Platelet Count 197 10^3/cmm (130-400); Red Blood Count 4.13 10^6/uL (4.1-5.3); Red Cell Distribution Width 13.9 % (12.1-15.1); White Blood Count 6.5 10^3/uL (4.0-10.0)
[2021-10-20 07:57] LABS: Anion Gap 14.8 (5-19); Blood Urea Nitrogen 10 mg/dL (8-23); Calcium 8.9 mg/dL (8.5-10.5); Carbon Dioxide 27 mmol/L (22-29); Chloride 94 mmol/L (98-107); Glucose 118 mg/dL (65-115); Osmolality Calculated 274 mOsm/kg (285-295); Potassium 3.8 mmol/L (3.5-5.1); Sodium 132 mmol/L (136-145)
[2021-10-20] MEDS: benzonatate 100 mg Capsule 200 MG PO ×2 (09:13→17:14)
[2021-10-20] MEDS: potassium chloride ER 20 mEq Tablet 40 MEQ PO (09:13)
[2021-10-20] MEDS: ascorbic acid 500 mg Tablet PO (09:13)
[2021-10-20] MEDS: memantine 5 mg tablet 10 MG PO ×2 (09:13→17:14)
[2021-10-20] MEDS: sennosides-docusate Tablet 1 TAB PO (09:13)
[2021-10-20] MEDS: amlodipine 5 mg Tablet PO (09:13)
[2021-10-20] MEDS: losartan 50 mg Tablet PO ×2 (09:14→17:15)
[2021-10-20] MEDS: apixaban 5 mg Tablet 2.5 MG PO ×2 (09:14→17:15)
[2021-10-20] MEDS: dexamethasone 4 mg Tablet 6 MG PO (09:14)
[2021-10-20] MEDS: dilTIAZem ER (24HR) 120 mg Capsule PO (09:14)
--- NOTE | 2021-10-20 11:05 | PM.PN ---
Subjective Subjective: Interval history: Patient is doing well on 2 L nasal cannula she is awake and alert, had a bowel movement, no active worsening of cough, she thinks her cough is getting better no active back pain Vitals/I&O/Wt Last Vital Signs Temp 98.7 F 10/20/21 04:00 Pulse 79 10/20/21 09:25 Resp 18 10/20/21 08:00 BP 169/75 10/20/21 09:14 Pulse Ox 93 10/20/21 09:25 10/19/21 10/20/21 10/20/21 22:59 06:59 14:59 Intake Total 120 / 780 200 / 980 120 / 120 Balance 120 / 780 200 / 980 120 / 120 Physical Exam Narrative: EXAM NARRATIVE: Patient sitting comfortably in her bed Saturating well on 2 L nasal cannula No audible stridor or wheezing Abdomen soft Nonfocal neuro exam No excruciating back pain Pleasant and cooperative during my evaluation Data : 10/20/21 06:32 10/20/21 06:32 Micro: Microbiology 10/18/21 12:03 Blood Culture - Preliminary Blood NEGATIVE TO DATE 10/18/21 11:50 Blood Culture - Preliminary Blood NEGATIVE TO DATE A&P Assessment and plan (1) Compression fracture of lumbar vertebra: Status: Acute Qualifiers: Encounter type: initial encounter Lumbar vertebra fracture level: L1 Qualified Code(s): S32.010A - Wedge compression fracture of first lumbar vertebra, initial encounter for closed fracture (2) COVID-19 virus infection: Status: Acute (3) Acute hypokalemia: Status: Acute (4) Chronic hyponatremia: Status: Acute (5) At high risk for falls: Status: Acute (6) Dementia: Status: Acute Qualifiers: Dementia type: Alzheimer's disease Alzheimer's disease onset: late-onset Dementia behavioral disturbance: with behavioral disturbance Qualified Code(s): G30.1 - Alzheimer's disease with late onset; F02.81 - Dementia in other diseases classified elsewhere with behavioral disturbance Additional A&P Information Patient is doing well on 2 L nasal cannula Continue remdesivir and Decadron A. fib without RVR Continue Eliquis Cough has improved Pain under control for L1 compression fracture No sign of cauda equina Patient had a bowel movement Full code Awaiting alf placement Attestations Medical Necessity Statement*: Continue medical management Time Spent in Patient Care: less than 15 minutes Coding Level of Care Code Acute Household Appliances Salesperson for Chg Fwd Diagnoses Compression fracture of lumbar vertebra S32.010A Encounter type: initial encounter Lumbar vertebra fracture level: L1 COVID-19 virus infection U07.1 Acute hypokalemia E87.6 Chronic hyponatremia E87.1 At high risk for falls Z91.81 Dementia G30.1; F02.81 Dementia type: Alzheimer's disease Alzheimer's disease onset: late-onset Dementia behavioral disturbance: with behavioral disturbance
[2021-10-20] MEDS: TRAMadol 50 mg Tablet PO (20:37)
[2021-10-21] VITALS (11 sets, daily range): BP systolic 151–184; BP diastolic 70–87; PULSE 59–81; RESP 16–20; TEMP 36.5–37.6; O2SAT 92–94
[2021-10-21] MEDS: remdesivir 100 MG in sodium chloride 0.9% (100 ml) 100 ML IV (05:02)
[2021-10-21] MEDS: TRAMadol 50 mg Tablet PO (06:37)
--- NOTE | 2021-10-21 09:06 | PM.PN ---
Subjective Subjective: Interval history: Patient is awaiting placement Currently on 2 L nasal cannula This morning she is complaining of back pain We will give her Dilaudid She got opiate around 6:30 AM patient is stating that she is able to walk around, had 1 bowel movement, no problems with urination Vitals/I&O/Wt Last Vital Signs Temp 98.7 F 10/21/21 08:05 Pulse 64 10/21/21 08:05 Resp 19 H 10/21/21 08:05 BP 167/74 10/21/21 08:05 Pulse Ox 92 10/21/21 08:05 10/20/21 10/21/21 10/21/21 22:59 06:59 14:59 Intake Total 240 / 600 200 / 800 Output Total 1700 / 1700 400 / 2100 Balance -1460 / -1100 -200 / -1300 Physical Exam Narrative: EXAM NARRATIVE: Patient is awake and alert On 2 L nasal cannula No acute respite distress S1, S2 variable Abdomen soft Looks euvolemic Alert and awake No signs of delusion Alert oriented x3 GCS 15 Nonfocal neuro exam Data : 10/20/21 06:32 10/20/21 06:32 A&P Assessment and plan (1) Compression fracture of lumbar vertebra: Status: Acute Qualifiers: Encounter type: initial encounter Lumbar vertebra fracture level: L1 Qualified Code(s): S32.010A - Wedge compression fracture of first lumbar vertebra, initial encounter for closed fracture (2) COVID-19 virus infection: Status: Acute (3) Acute hypokalemia: Status: Acute (4) Chronic hyponatremia: Status: Acute Additional A&P Information Patient is awaiting placement Will give her opioids for her elbow compression fracture back pain For COVID-19 pneumonia she is currently on 2 L, continue Decadron and remdesivir She has underlying dementia, no active decompensation, no signs of delirium Plan to release her once she got accepted to a retirement Attestations Medical Necessity Statement*: longterm placement pending Time Spent in Patient Care: less than 15 minutes Coding Level of Care Code Acute Pari Mutuel Ticket Seller for Mellissa Latham Diagnoses Compression fracture of lumbar vertebra S32.010A Encounter type: initial encounter Lumbar vertebra fracture level: L1 COVID-19 virus infection U07.1 Acute hypokalemia E87.6 Chronic hyponatremia E87.1
[2021-10-21] MEDS: benzonatate 100 mg Capsule 200 MG PO ×2 (09:15→17:11)
[2021-10-21] MEDS: dexamethasone 4 mg Tablet 6 MG PO (09:16)
[2021-10-21] MEDS: apixaban 5 mg Tablet 2.5 MG PO ×2 (09:17→17:11)
[2021-10-21] MEDS: losartan 50 mg Tablet PO ×2 (09:18→17:11)
[2021-10-21] MEDS: ascorbic acid 500 mg Tablet PO (09:18)
[2021-10-21] MEDS: dilTIAZem ER (24HR) 120 mg Capsule PO (09:18)
[2021-10-21] MEDS: memantine 5 mg tablet 10 MG PO ×2 (09:18→17:11)
[2021-10-21] MEDS: sennosides-docusate Tablet 1 TAB PO (09:18)
[2021-10-21] MEDS: amlodipine 5 mg Tablet PO (09:18)
--- NOTE | 2021-10-21 09:21 | MR_ITS ---
WS: [id number] MRI LUMBAR SPINE NONCONTRAST HISTORY: L1 compression fracture. COMPARISON: Lumbar spine and CT 10/18/2021. TECHNIQUE: Sagittal and axial multisequence imaging is submitted. Moderate increase in the thoracic kyphosis. There is a small amount of edema along the superior endplate of T10 with mild concave deformity. Less than 10% loss of height. Very slight anterolisthesis of L3 by less than 2 mm. Very slight increase in the lordosis. Mild desiccation of disc spaces throughout without significant narrowing. Mild anterior wedging of L1 , 10-15%. Concave deformity involving the superior endplate. There is very slight buckling of the pos terior superior endplate without contact on the thecal sac, nerve roots or conus. Mild amount of timmy a in the superior half of the vertebral body. There is no edema in the disc. No significant edema in the posterior elements. Conus terminates normally at L1-2 disc level. T12-L1: Mild facet and ligamentum flavum hypertrophy. No stenosis. L1-L2: Mild facet and ligamentum flavum hypertrophy. No stenosis. L2-L3: Mild annular disc bulging with moderate ligamentum flavum and facet joint hypertrophy. No sign ificant stenosis. L3-L4: Very slight annular disc bulging with very small LEFT foraminal disc protrusion. No contact on the nerve roots. Moderate ligamentum flavum hypertrophy and facet arthritis. Fluid in the facet join ts. L4-L5: Mild annular disc bulging. Mild facet joint arthritis. No significant stenosis. L5-S1: Mild annular disc bulge with broad-based disc protrusion centrally. There is a very shallow RI GHT paracentral disc protrusion. There does not appear to be contact on the S1 nerve root. Mild atherosclerosis aorta. MR/MR lumbar spine wo con* [id number] IMPRESSION: 1. Age-indeterminate probably subacute fracture L1. There is a small amount of edema remaining lung the superior endplate. Fracture 10-15% with very minimal buckling of the posterior superior endplate. No cord contact or stenosis. 2. Age indeterminate but probable subacute less than 10% compression fracture at T10. No retropulsion. 3. Shallow RIGHT paracentral disc protrusion at L5-S1 with no contact on the n erve root. 4. Small LEFT foraminal disc protrusion at L3-4 with no contact on the nerve r oots.
--- NOTE | 2021-10-21 11:08 | PC.SOCIAL ---
Pg 2 IMM Explained to pt's daughter on Pg 2 IMM. No questions voiced. Provided pt a copy. Initialed, dated, & timed a copy & placed in chart.
[2021-10-22] VITALS (9 sets, daily range): BP systolic 124–178; BP diastolic 66–84; PULSE 53–98; RESP 18; TEMP 36.7–37.2; O2SAT 91–96
[2021-10-22] MEDS: remdesivir 100 MG in sodium chloride 0.9% (100 ml) 100 ML IV (05:09)
[2021-10-22 05:58] LABS: Anion Gap 14.1 (5-19); Blood Urea Nitrogen 12 mg/dL (8-23); Carbon Dioxide 26 mmol/L (22-29); Chloride 96 mmol/L (98-107); Potassium 4.1 mmol/L (3.5-5.1); Sodium 132 mmol/L (136-145)
[2021-10-22 05:59] LABS: Calcium 8.7 mg/dL (8.5-10.5); Glucose 98 mg/dL (65-115); Osmolality Calculated 274 mOsm/kg (285-295)
[2021-10-22] MEDS: benzonatate 100 mg Capsule 200 MG PO ×2 (08:33→16:28)
[2021-10-22] MEDS: dexamethasone 4 mg Tablet 6 MG PO (08:34)
[2021-10-22] MEDS: memantine 5 mg tablet 10 MG PO ×2 (08:35→16:30)
[2021-10-22] MEDS: amlodipine 5 mg Tablet PO (08:36)
[2021-10-22] MEDS: apixaban 5 mg Tablet 2.5 MG PO ×2 (08:36→16:28)
[2021-10-22] MEDS: dilTIAZem ER (24HR) 120 mg Capsule PO (08:37)
[2021-10-22] MEDS: sennosides-docusate Tablet 1 TAB PO (08:37)
[2021-10-22] MEDS: losartan 50 mg Tablet PO ×2 (08:37→16:29)
[2021-10-22] MEDS: ascorbic acid 500 mg Tablet PO (08:37)
--- NOTE | 2021-10-22 09:05 | PM.PN ---
Subjective Subjective: Interval history: Patient resting comfortably in her bed currently on 3 L nasal cannula No overnight events patient is stating that she is able to eat her diet, had a bowel movement yesterday, no overnight events, she is feeling better her energy has improved as well Awaiting placement to [facility], updated daughter yesterday MRI did not show any signs of spinal cord compression Vitals/I&O/Wt Last Vital Signs Temp 98.3 F 10/22/21 08:09 Pulse 98 10/22/21 08:09 Resp 18 10/22/21 08:09 BP 174/79 10/22/21 08:09 Pulse Ox 94 10/22/21 08:09 10/21/21 10/22/21 10/22/21 22:59 06:59 14:59 Intake Total 300 / 1180 Output Total 450 / 800 520 / 1320 Balance -450 / 80 -220 / -140 Physical Exam Narrative: EXAM NARRATIVE: This morning patient is resting comfortably in her bed Saturating well on 3 L nasal cannula S1, S2 variable No acute respite distress No audible stridor or wheezing Abdomen soft No new neurological deficit Looks euvolemic Data : 10/20/21 06:32 10/22/21 04:48 A&P Assessment and plan (1) Compression fracture of lumbar vertebra: Status: Acute Qualifiers: Encounter type: initial encounter Lumbar vertebra fracture level: L1 Qualified Code(s): S32.010A - Wedge compression fracture of first lumbar vertebra, initial encounter for closed fracture (2) COVID-19 virus infection: Status: Acute (3) Chronic hyponatremia: Status: Acute (4) At high risk for falls: Status: Acute (5) Hypertension: Status: Chronic Qualifiers: Hypertension type: essential hypertension Qualified Code(s): I10 - Essential (primary) hypertension (6) Dementia: Status: Acute Qualifiers: Dementia type: Alzheimer's disease Alzheimer's disease onset: late-onset Dementia behavioral disturbance: with behavioral disturbance Qualified Code(s): G30.1 - Alzheimer's disease with late onset; F02.81 - Dementia in other diseases classified elsewhere with behavioral disturbance (7) Atrial fibrillation: Status: Chronic Additional A&P Information COVID-19 related hypoxia Currently requiring 3 L cannula Continue Decadron and steroids L1 compression fracture no signs of cauda equina, MRI spine unremarkable for spinal cord involvement Chronic hyponatremia: Sodium 132 Hypokalemia: Repleted A. fib without RVR continue Eliquis Cardiac diet Full code DVT prophylaxis on board Attestations Medical Necessity Statement*: Awaiting placement to [facility] Time Spent in Patient Care: less than 15 minutes Coding Level of Care Code Acute Biztalk Developer for Chg Fwd Diagnoses Compression fracture of lumbar vertebra S32.010A Encounter type: initial encounter Lumbar vertebra fracture level: L1 COVID-19 virus infection U07.1 Chronic hyponatremia E87.1 At high risk for falls Z91.81 Hypertension I10 Hypertension type: essential hypertension Dementia G30.1; F02.81 Dementia type: Alzheimer's disease Alzheimer's disease onset: late-onset Dementia behavioral disturbance: with behavioral disturbance Atrial fibrillation I48.91
[2021-10-23] VITALS (8 sets, daily range): BP systolic 137–168; BP diastolic 68–84; PULSE 58–79; RESP 16–22; TEMP 36.4–36.9; O2SAT 91–99
[2021-10-23 06:02] LABS: Basophils % 0.2 %; Hematocrit 38.4 % (37.0-47.0); Hemoglobin 12.5 g/dL (11.5-15.3); Lymphocytes # 1.2 10^3/uL (0.8-4.8); Lymphocytes % 11.5 %; Mean Corpuscular HGB Conc 32.6 g/dL (30.0-36.0); Mean Corpuscular Hemoglobin 29.2 pg (28.0-34.0); Mean Corpuscular Volume 89.7 fl (81-99); Mean Platelet Volume 9.4 fL (7.4-10.4); Monocytes # 1.1 10^3/uL (0.2-0.9); Monocytes % 10.6 %; Neutrophils # 7.78 10^3/uL (1.8-7.7); Neutrophils % 76.1 %; Nucleated Red Blood Cells % 0 %; Platelet Count 274 10^3/cmm (130-400); Red Blood Count 4.28 10^6/uL (4.1-5.3); White Blood Count 10.2 10^3/uL (4.0-10.0)
[2021-10-23] MEDS: remdesivir 100 MG in sodium chloride 0.9% (100 ml) 100 ML IV (06:02)
[2021-10-23 06:17] LABS: Blood Urea Nitrogen 15 mg/dL (8-23); Calcium 8.7 mg/dL (8.5-10.5); Carbon Dioxide 27 mmol/L (22-29); Chloride 97 mmol/L (98-107); Glucose 103 mg/dL (65-115); Osmolality Calculated 275 mOsm/kg (285-295); Sodium 132 mmol/L (136-145)
[2021-10-23 06:22] LABS: Anion Gap 12.4 (5-19); Potassium 4.4 mmol/L (3.5-5.1)
[2021-10-23] MEDS: dilTIAZem ER (24HR) 120 mg Capsule PO (07:47)
[2021-10-23] MEDS: sennosides-docusate Tablet 1 TAB PO (07:48)
[2021-10-23] MEDS: apixaban 5 mg Tablet 2.5 MG PO ×2 (07:48→16:41)
[2021-10-23] MEDS: ascorbic acid 500 mg Tablet PO (07:48)
[2021-10-23] MEDS: losartan 50 mg Tablet PO ×2 (07:48→16:41)
[2021-10-23] MEDS: dexamethasone 4 mg Tablet 6 MG PO (07:49)
[2021-10-23] MEDS: benzonatate 100 mg Capsule 200 MG PO ×2 (07:49→16:40)
[2021-10-23] MEDS: amlodipine 5 mg Tablet PO (07:50)
[2021-10-23] MEDS: memantine 5 mg tablet 10 MG PO ×2 (07:50→16:42)
--- NOTE | 2021-10-23 09:03 | P.PN_ITS ---
Subjective Subjective: Interval history: Patient is doing well, no overnight events, no leukocytosis, afebrile Sodium 132 Vitals/I&O/Wt Last Vital Signs Temp 97.8 F 10/23/21 08:58 Pulse 76 10/23/21 08:58 Resp 20 H 10/23/21 08:58 BP 168/73 10/23/21 08:58 Pulse Ox 92 10/23/21 08:58 10/22/21 10/23/21 10/23/21 22:59 06:59 14:59 Intake Total 500 / 500 150 / 650 240 / 240 Balance 500 / 500 150 / 650 240 / 240 Physical Exam Narrative: EXAM NARRATIVE: Patient is doing well No excruciating back pain No sign of cauda equina Saturating well on 2 L nasal cannula Abdomen soft No audible stridor or wheezing Awake and alert Data : 10/23/21 05:15 10/23/21 05:15 A&P Assessment and plan (1) Compression fracture of lumbar vertebra: Status: Acute Qualifiers: Encounter type: initial encounter Lumbar vertebra fracture level: L1 Qualified Code(s): S32.010A - Wedge compression fracture of first lumbar vertebra, initial encounter for closed fracture (2) COVID-19 virus infection: Status: Acute (3) Chronic hyponatremia: Status: Acute (4) Incontinence: Status: Acute (5) Dementia: Status: Acute Qualifiers: Dementia type: Alzheimer's disease Alzheimer's disease onset: late- onset Dementia behavioral disturbance: with behavioral disturbance Qualified Code(s): G30.1 - Alzheimer's disease with late onset; F02.81 - Dementia in other diseases classified elsewhere with behavioral disturbance (6) Hypertension: Status: Chronic Qualifiers: Hypertension type: essential hypertension Qualified Code(s): I10 - Essential (primary) hypertension Additional A&P Information COVID-19 pneumonia Requiring 2 L nasal cannula Compression fracture L1 no signs of cauda equina Pain well controlled Awaiting intermediate placement to [facility] probably on Tuesday Full code A. fib without RVR continue Eliquis No acute exacerbation of underlying dementia Daughter has been updated María Tamayo Attestations Medical Necessity Statement*: Awaiting placement Time Spent in Patient Care: less than 15 minutes Coding Level of Care Code Acute Roofing Superintendent for Chg Fwd Diagnoses Compression fracture of lumbar vertebra S32.010A Encounter type: initial encounter Lumbar vertebra fracture level: L1 COVID-19 virus infection U07.1 Chronic hyponatremia E87.1 Incontinence R32 Dementia G30.1; F02.81 Dementia type: Alzheimer's disease Alzheimer's disease onset: late-onset Dementia behavioral disturbance: with behavioral disturbance Hypertension I10 Hypertension type: essential hypertension
--- NOTE | 2021-10-23 12:29 | PC.SOCIAL ---
IMM Updated Updated pt's daughter on IMM. No questions voiced. Provided pt a copy. Initialed, dated, & timed copy in chart.
[2021-10-24] VITALS (11 sets, daily range): BP systolic 138–159; BP diastolic 67–85; PULSE 0–73; RESP 15–18; TEMP 36.7–37.1; O2SAT 91–95
[2021-10-24] MEDS: sennosides-docusate Tablet 1 TAB PO (09:28)
[2021-10-24] MEDS: amlodipine 5 mg Tablet PO (09:28)
[2021-10-24] MEDS: memantine 5 mg tablet 10 MG PO ×2 (09:28→18:26)
[2021-10-24] MEDS: benzonatate 100 mg Capsule 200 MG PO ×2 (09:28→18:26)
[2021-10-24] MEDS: losartan 50 mg Tablet PO ×2 (09:28→18:26)
[2021-10-24] MEDS: dilTIAZem ER (24HR) 120 mg Capsule PO (09:28)
[2021-10-24] MEDS: ascorbic acid 500 mg Tablet PO (09:28)
[2021-10-24] MEDS: dexamethasone 4 mg Tablet 6 MG PO (09:29)
--- NOTE | 2021-10-24 09:55 | P.PN_ITS ---
Subjective Subjective: Interval history: Patient is on room air No active back pain Vitals/I&O/Wt Last Vital Signs Temp 98.8 F 10/24/21 09:10 Pulse 65 10/24/21 09:10 Resp 17 10/24/21 09:10 BP 159/74 10/24/21 09:28 Pulse Ox 93 10/24/21 09:10 10/23/21 10/24/21 10/24/21 22:59 06:59 14:59 Intake Total 400 / 640 Balance 400 / 640 Weight last 48 hrs Weight 88.677 kg Physical Exam Narrative: EXAM NARRATIVE: Feeling well On room air S1, S2 No acute respite distress No back pain No sign of cauda equina Nonfocal neuro exam Looks hydrated Data : 10/23/21 05:15 10/23/21 05:15 Micro: Microbiology 10/18/21 12:03 Blood Culture - Final Blood NO GROWTH AFTER 5 DAYS 10/18/21 11:50 Blood Culture - Final Blood NO GROWTH AFTER 5 DAYS A&P Assessment and plan (1) Compression fracture of lumbar vertebra: Status: Acute Qualifiers: Encounter type: initial encounter Lumbar vertebra fracture level: L1 Qualified Code(s): S32.010A - Wedge compression fracture of first lumbar vertebra, initial encounter for closed fracture (2) COVID-19 virus infection: Status: Acute Additional A&P Information Patient is on room air Doing well I would finish remdesivir and Decadron regimen Awaiting placement on Tuesday to [facility] Attestations Medical Necessity Statement*: Will be discharged to [facility] Time Spent in Patient Care: less than 15 minutes Coding Level of Care Code Acute Vending Machine Operator for [facility] Fwd Diagnoses Compression fracture of lumbar vertebra S32.010A Encounter type: initial encounter Lumbar vertebra fracture level: L1 COVID-19 virus infection U07.1
[2021-10-24] MEDS: apixaban 5 mg Tablet 2.5 MG PO ×2 (12:13→18:26)
[2021-10-25] VITALS (10 sets, daily range): BP systolic 140–154; BP diastolic 62–79; PULSE 63–82; RESP 18; TEMP 36.7–37.4; O2SAT 88–94
--- NOTE | 2021-10-25 00:05 | PC.NURSE ---
Patient off telemetry, patient pulling at tele and refusing to leave on per day shift report.
[2021-10-25] MEDS: memantine 5 mg tablet 10 MG PO ×2 (08:50→18:00)
[2021-10-25] MEDS: amlodipine 5 mg Tablet PO (08:50)
[2021-10-25] MEDS: benzonatate 100 mg Capsule 200 MG PO ×2 (08:50→18:00)
[2021-10-25] MEDS: losartan 50 mg Tablet PO ×2 (08:50→18:01)
[2021-10-25] MEDS: sennosides-docusate Tablet 1 TAB PO (08:50)
[2021-10-25] MEDS: dilTIAZem ER (24HR) 120 mg Capsule PO (08:51)
[2021-10-25] MEDS: dexamethasone 4 mg Tablet 6 MG PO (08:51)
[2021-10-25] MEDS: ascorbic acid 500 mg Tablet PO (08:51)
[2021-10-25] MEDS: apixaban 5 mg Tablet 2.5 MG PO ×2 (08:51→18:01)
--- NOTE | 2021-10-25 09:20 | PM.PN ---
Subjective Subjective: Interval history: Patient sitting in recliner, doing well on room air Back pain tolerable Very pleasant and cooperative She is happy and excited to go to retirement tomorrow Vitals/I&O/Wt Last Vital Signs Temp 98.6 F 10/25/21 08:00 Pulse 66 10/25/21 08:00 Resp 18 10/25/21 08:00 BP 154/79 10/25/21 08:50 Pulse Ox 88 L 10/25/21 08:00 10/24/21 10/25/21 10/25/21 22:59 06:59 14:59 Intake Total 240 / 480 240 / 720 Output Total 480 / 480 440 / 920 Balance -240 / 0 -200 / -200 Weight last 48 hrs Weight 88.677 kg Physical Exam Narrative: EXAM NARRATIVE: Very pleasant cooperative Doing well on room air Dr. Almeida cauda equina S1, S2 No active audible stridor or wheezing Abdomen soft Nonfocal neuro exam Data : 10/23/21 05:15 10/23/21 05:15 A&P Assessment and plan (1) Compression fracture of lumbar vertebra: Status: Acute Qualifiers: Encounter type: initial encounter Lumbar vertebra fracture level: L1 Qualified Code(s): S32.010A - Wedge compression fracture of first lumbar vertebra, initial encounter for closed fracture (2) COVID-19 virus infection: Status: Acute (3) Chronic hyponatremia: Status: Acute Additional A&P Information COVID-19 related pneumonia Doing well on room air L1 compression fracture no signs of cauda equina Pain under control Full code Cardiac diet A. fib without RVR DVT prophylaxis covered with anticoagulating agent senior care placement tomorrow Attestations Medical Necessity Statement*: Discharge tomorrow Time Spent in Patient Care: less than 15 minutes Coding Level of Care Code Acute Dragline Operator Helper for Chg Fwd Diagnoses Compression fracture of lumbar vertebra S32.010A Encounter type: initial encounter Lumbar vertebra fracture level: L1 COVID-19 virus infection U07.1 Chronic hyponatremia E87.1
--- NOTE | 2021-10-25 11:06 | PC.SOCIAL ---
IMM Update pg 2 of IMM updated and reviewed w/ patient. Copy provided and copy signed in chart.
[2021-10-26] VITALS (7 sets, daily range): BP systolic 131–138; BP diastolic 66–70; PULSE 60–100; RESP 16–18; TEMP 36.7–36.9; O2SAT 91–94
[2021-10-26 07:02] LABS: Anion Gap 12.4 (5-19); Blood Urea Nitrogen 17 mg/dL (8-23); Calcium 8.5 mg/dL (8.5-10.5); Carbon Dioxide 25 mmol/L (22-29); Chloride 102 mmol/L (98-107); Glucose 81 mg/dL (65-115); Osmolality Calculated 281 mOsm/kg (285-295); Potassium 4.4 mmol/L (3.5-5.1); Sodium 135 mmol/L (136-145)
[2021-10-26] MEDS: amlodipine 5 mg Tablet PO (10:26)
[2021-10-26] MEDS: sennosides-docusate Tablet 1 TAB PO (10:27)
[2021-10-26] MEDS: ascorbic acid 500 mg Tablet PO (10:27)
[2021-10-26] MEDS: losartan 50 mg Tablet PO (10:27)
[2021-10-26] MEDS: memantine 5 mg tablet 10 MG PO (10:27)
[2021-10-26] MEDS: dilTIAZem ER (24HR) 120 mg Capsule PO (10:27)
[2021-10-26] MEDS: benzonatate 100 mg Capsule 200 MG PO (10:27)
[2021-10-26] MEDS: apixaban 5 mg Tablet 2.5 MG PO (10:28)
[2021-10-26] MEDS: dexamethasone 4 mg Tablet 6 MG PO (10:28)
--- NOTE | 2021-10-26 11:20 | PM.DCS ---
Discharge Providers Date of Admission: 10/18/21 15:06 Date of Discharge: October 25, 2021 Attending Provider at Admission: Zack Mercado MD Attending Provider at Discharge: Zack Mercado MD Primary Care Provider: WES Monson Diagnoses at Discharge Discharge Diagnosis (1) Compression fracture of lumbar vertebra: Status: Acute Qualifiers: Encounter type: initial encounter Lumbar vertebra fracture level: L1 Qualified Code(s): S32.010A - Wedge compression fracture of first lumbar vertebra, initial encounter for closed fracture (2) COVID-19 virus infection: Status: Acute (3) Chronic hyponatremia: Status: Acute Reason for Visit Reason for Visit: WEAKNESS; COVID + Hospital Course Hospital Course History of Present Illness Hali Ga is a 81 year old female who has been exposed to her family members who are suffering from COVID infection, came in today for worsening confusion and a fall. As per her daughters, her symptoms started on 10/08 with cough and shortness of breath, she tested positive on 10/12. Since then she has been very confused, she is not sure where she is sometimes forgets to go to the bathroom, she has been swelling herself with urine, she was found naked at some point as well in her home, since 10/12 she has been requiring 1 to 2 L of oxygen at home, no fever, nausea, vomiting or chest pain reported. She felt on Tuesday for 10/14, EMS evaluated her and recommended staying in the home today family brought her back because of worsening confusion. In the ER she is on room air saturating 95%, still confused, oriented to herself, normal CBC, BMP with hypokalemia, L1 fracture without spinal cord compression, no signs of cauda equina Daughter requesting long-term penitentiary placement versus [facility] swing bed We will touch base with automatic data processing planner Daughter will provide us with a living will, Ms. Tamayo is her DPOA she is full code for now Hospital course Patient was admitted for management and evaluation of hypoxia related to COVID-19 and elbow compression fracture, MRI spine did not show any spinal cord involvement, neurologically she was not showing symptoms or signs of cauda equina, initially she was requiring 2 L of oxygen for her COVID-19 related hypoxia however this was weaned off gradually to room air, her back pain was adequately controlled with opioids. She did not suffer from constipation. Patient remained very pleasant her confusion resolved and she was able to talk without any difficulty with the family members as well. However she does have cognitive impairment and short-term memory loss. She has been accepted to [facility] where she will be discharged on 10/26. For her hyponatremia I have discontinued her hydrochlorothiazide. For her back pain will add oxycodone along bowel regimen Physical Exam Narrative: EXAM NARRATIVE: Very pleasant cooperative S1, S2 Saturating well on room air Abdomen soft Nonfocal neuro exam Discharge Data Data Completed and Pending: Completed Studies During Hospitalization Category Date Time Status CT lumbar spine w o con* [id number] Urgen t Cat Scan 10/18/21 12:22 Completed XR chest 1V nuria ble [id number] Urgent Exams 10/18/21 11:15 Completed XR lumbar spine 2 -3V* [id number] Urgent Exams 10/18/21 11:16 Completed XR pelvis 1-2V* 7 [id number] Urgent Exams 10/18/21 11:16 Completed MR lumbar spine w o con* [id number] Routi ne MRI 10/21/21 09:21 Completed Pending at discharge Category Date Time Status Arterial Blood Ga s W/O Coox AM LABS Lab 10/26/21 04:00 Ordered Basic Metabolic P loki AM LABS Lab 10/26/21 04:00 Ordered Urinalysis and Mi croscopic Stat Lab 10/18/21 11:17 Uncollected Urine Culture Sta t Lab 10/18/21 11:17 Uncollected Vitals: Last Vital Signs Temp 99.4 F 10/25/21 16:00 Pulse 65 10/25/21 16:00 Resp 18 10/25/21 16:00 BP 146/75 10/25/21 16:00 Pulse Ox 93 10/25/21 16:00 Discharge Plan Discharge Patient Disposition: Xfer SNF Condition: Stable Prescriptions: New Senna-S 8.6-50 mg tablet 1 tab-cap PO DAILY Qty: 60 RF: 0 oxycodone 5 mg tablet 5 mg PO Q8H Qty: 20 RF: 0 Continued Lactobacillus acidophilus [Acidophilus] Capsule 100 mg PO DAILY RF: 0 ascorbic acid (vitamin C) 500 mg capsule 500 mg PO DAILY RF: 0 coenzyme Q10 100 mg capsule 100 mg PO DAILY RF: 0 omega-3 fatty acids [Fish Oil Concentrate] 1,000 mg capsule 1,000 mg PO DAILY RF: 0 lysine 500 mg tablet 500 mg PO DAILY RF: 0 pravastatin 40 mg tablet 40 mg PO DAILY RF: 0 Shower chair See Rx Instructions .ROUTE .COMPLEX Qty: 1 RF: 0 Incontinence supplies See Rx Instructions .ROUTE .COMPLEX Qty: 1 RF: 0 benzonatate 200 mg capsule 200 mg PO BID 15 Days Qty: 30 RF: 0 Eliquis 2.5 mg tablet 2.5 mg PO BID 90 Days Qty: 180 RF: 0 ferrous sulfate 28 mg iron tablet 28 mg PO DAILY RF: 0 fluticasone propionate [Allergy Relief (fluticasone)] 50 mcg/actuation spray,suspension 1 spray INTRANASAL DAILY Qty: 16 RF: 5 diltiazem HCl 120 mg capsule,extended release 24hr See Rx Instructions .ROUTE .COMPLEX Qty: 90 RF: 0 donepezil 23 mg tablet See Rx Instructions .ROUTE .COMPLEX Qty: 90 RF: 0 memantine [Namenda] 5 mg tablet 10 mg PO BID Qty: 60 RF: 2 albuterol sulfate 2.5 mg /3 mL (0.083 %) solution for nebulization 2.5 mg inhalation Q8H PRN (Reason: bronchospasm) Qty: 90 RF: 0 ondansetron HCl 4 mg tablet See Rx Instructions .ROUTE .COMPLEX Qty: 10 RF: 0 amlodipine 5 mg Tablet 5 mg PO DAILY RF: 0 losartan 50 mg tablet 50 mg PO BID RF: 0 Discontinued warfarin 5 mg tablet 5 mg PO .COMPLEX Qty: 60 RF: 0 warfarin 7.5 mg tablet See Rx Instructions .ROUTE .COMPLEX Qty: 90 RF: 0 hydrochlorothiazide 12.5 mg Tablet 12.5 mg PO DAILY RF: 0 Discharge Orders: Discharge Order (Routine); Ordered 10/26/21 Ordered By: Zack Mercado Referrals: [facility] [Outside] Rizwan Redding FNP [Primary Care Provider] - Discharge Diet: Cardiac Discharge Activity: Increase activity as tolerated Discharge Attestations Time Spent in Discharge Care*: less than 30 min Quality Metrics Clinical Quality Measures During this hospital stay, did patient experience: None Coding Level of Care Code Acute Chg FW DC note Diagnoses Compression fracture of lumbar vertebra S32.010A Encounter type: initial encounter Lumbar vertebra fracture level: L1 COVID-19 virus infection U07.1 Chronic hyponatremia E87.1
--- NOTE | 2021-10-26 13:41 | PC.NURSE ---
THIS NURSE ATTEMPTED TO CALL REPORT SEVERAL TIMES TO [facility] AT [id number]. NO ONE WOULD TAKE MY CALL. THIS NURSE INFORMED THE TECHNICAL MGR, ROMAINE, THAT I WAS TRYING TO GIVE REPORT AND THAT THE [facility]TS RIDE, WHICH IS HER DAUGHTER, IS ON HER WAY TO TRANSFER PT TO THEIR FACILITY. REPORT STILL HAS NOT BEEN ABLE TO BE GIVEN. THIS NURSE WILL CONTINUE TO ANTICIPATE A CALL FROM THE [facility] [place]. PT HAS SAFELY BEEN DISCHARGED FROM THE HOSPITAL WITH HER DAUGHTER AND THEY ARE ON THEIR WAY TO [facility] [place].
== END 2021-10-26 12:30 | disposition skilled nursing facility (03) | DRG 177 ==
LOC: ER 15:15 → MEDSURG 16:42
PROVIDERS: Admitting Provider Internal Medicine; Emergency Provider Family Medicine; PCP Registered Nurse; Visit Provider Internal Medicine
DX: U07.1 COVID-19 (principal); J12.82 Pneumonia due to coronavirus disease 2019; S32.010A Wedge compression fracture of first lumbar vertebra, initial encounter for closed fracture; F02.81 Dementia in other diseases classified elsewhere, unspecified severity, with behavioral disturbance; F05 Delirium due to known physiological condition; R29.6 Repeated falls; I48.91 Unspecified atrial fibrillation; Z86.73 Personal history of transient ischemic attack (TIA), and cerebral infarction without residual deficits; G30.1 Alzheimer's disease with late onset; I10 Essential (primary) hypertension; E89.0 Postprocedural hypothyroidism; E87.6 Hypokalemia; W19.XXXA Unspecified fall, initial encounter; Z79.01 Long term (current) use of anticoagulants
CPT/HCPCS: 36415; 36600; 71045; 72100; 72131; 72148; 72170; 80048; 80053; 82803; 83605; 83735; 83880; 84484; 85025; 85610; 85730; 87040; 93005; 97116; 97161; 97530; 99285; A9577; J8540